=== PATIENT | female | born 1940 | race African-American/Black ===

== ENCOUNTER 2024-05-30 18:29 | Inpatient (IN) | payer MEDICARE, OTHER ==
[~2024-05-30] VITALS: Ht 165.1 cm; Wt 77.1 kg
[~2024-05-30 18:29] MED LIST: POTA-88 PO
[2024-05-30] MEDS: IV NS 0.9% 1,000 ML BAG IV ONE ×2 (18:45→19:45)
[2024-05-30] MEDS ORDERED: LORAZEPAM INJ 2 MG/ML VIAL ONE (18:49)
[2024-05-30] MEDS: LORAZEPAM INJ 2 MG/ML VIAL IV STA (18:51)
[2024-05-30] MEDS: FENTANYL PF 100MCG/2ML AMPUL IV ONE (18:52)
[2024-05-30] MEDS: ROCURONIUM BROMIDE 100 MG/10 ML VIAL IV ONE (18:52)
[2024-05-30] MEDS: ETOMIDATE 2 MG/ML VIAL IV ONE (18:52)
[2024-05-30 18:56] LABS: BASOPHILS % (AUTO) 1.6 % (0.0-2.0); EOSINOPHILS % (AUTO) 0.7 % (0.0-6.0); HEMATOCRIT 36 % (33-45); HEMOGLOBIN 11.4 g/dL (11.5-14.8); LYMPHOCYTES % (AUTO) 31.6 % (20.0-44.0); MEAN CORPUSCULAR HEMOGLOBIN 28 PG (26.0-33.0); MEAN CORPUSCULAR HGB CONC 32 g/dl (31.0-36.0); MEAN CORPUSCULAR VOLUME 86 fL (82-100); MONOCYTES % (AUTO) 10.3 % (2.0-12.0); NEUTROPHILS % (AUTO) 55.8 % (43.0-81.0); PLATELET COUNT (AUTO) 406 K/uL (150-450); RED BLOOD CELL COUNT(AUTO) 4.12 MIL/uL (4.0-5.2); WHITE BLOOD COUNT (AUTO) 7.9 K/uL (4.3-11.0)
[2024-05-30 18:57] LABS: BASOPHILS # (AUTO) 0.1 K/uL (0.0-0.2); EOSINOPHILS # (AUTO) 0.1 K/uL (0.0-0.7); LYMPHOCYTES # (AUTO) 2.5 K/uL (0.8-4.8); MONOCYTES # (AUTO) 0.8 K/uL (0.1-1.30); NEUTROPHILS # (AUTO) 4.4 K/uL (1.8-8.9)
[2024-05-30] MEDS: MIDAZOLAM HCL 2 MG/2ML VIAL IV ONE (19:00)
[2024-05-30 19:10] LABS: INR 1.02 (0.91-1.10); PARTIAL THROMBOPLASTIN TIME 23.5 SEC (24.3-34.3); PROTHROMBIN TIME 10.8 SECS (9.2-11.1); SERUM AMMONIA 19 umol/L (11-32)
[2024-05-30 19:21] LABS: LACTIC ACID 2.2 mmol/L (0.4-2.0)
[2024-05-30 19:31] LABS: APPEARANCE,URINE SLIGHTLY CLOUDY (CLEAR); BILIRUBIN,URINE 1+ (NEGATIVE); BLOOD, URINE NEGATIVE Ery/uL (NEGATIVE); COLOR,URINE YELLOW (YELLOW); KETONES,URINE NEGATIVE (NEGATIVE); LEUKOCYTE ESTERASE ,URINE NEGATIVE (NEGATIVE); NITRITE, URINE NEGATIVE (NEGATIVE); PROTEIN,URINE TRACE mg/dl (NEGATIVE); UGLUCOSE NEGATIVE (NEGATIVE)
[2024-05-30 19:44] LABS: ALANINE AMINOTRANSFERASE 82 U/L (12-78); ALBUMIN 2.3 g/dL (3.4-5.0); ALKALINE PHOSPHATASE 741 U/L (46-116); ASPARTATE AMINOTRANSFERASE 93 U/L (15-37); BILIRUBIN,DIRECT 4.9 mg/dL (0.0-0.2); BILIRUBIN,TOTAL 5.1 mg/dL (0.2-1.0); CALCIUM, SERUM 8.7 mg/dL (8.5-10.1); CARBON DIOXIDE 33 mmol/L (21-32); CHLORIDE 103 mmol/L (98-107); CREATININE 0.8 mg/dL (0.6-1.3); GLUCOSE 257 mg/dL (74-106); LIPASE 13 U/L (16-77); POTASSIUM 4.6 mmol/L (3.5-5.1); SODIUM SERUM 141 mmol/L (136-145); UREA NITROGEN, BLOOD 11 mg/dL (7-18)
[2024-05-30] MEDS ORDERED: ASCO500T10 PO (19:44)
[2024-05-30] MEDS ORDERED: CALC-1143 PO (19:44)
[2024-05-30] MEDS ORDERED: DOCU100C36 PO (19:44)
[2024-05-30] MEDS ORDERED: AMIN30LI27 PO (19:44)
[2024-05-30] MEDS ORDERED: SERT50TA12 PO (19:44)
[2024-05-30] MEDS ORDERED: ACET325T53 PO ×2 (19:44)
[2024-05-30] MEDS ORDERED: MAGN400O6 PO (19:44)
[2024-05-30] MEDS ORDERED: ONDA4TAB5 PO (19:44)
[2024-05-30] MEDS ORDERED: CARV12.52 PO (19:44)
[2024-05-30] MEDS ORDERED: BISA10SU11 RC (19:44)
[2024-05-30] MEDS ORDERED: MULT-213 PO (19:44)
[2024-05-30] MEDS ORDERED: NA P133E RC (19:44)
[2024-05-30] MEDS ORDERED: PANT40TA49 PO (19:44)
[2024-05-30] MEDS ORDERED: INSU100V42 SQ (19:44)
[2024-05-30] MEDS ORDERED: CLON0.5T4 PO (19:44)
[2024-05-30] MEDS: LEVETIRACETAM (500MG) 1,000 MG in IV NS 0.9% 90 ML IV SCH (19:55)
[2024-05-30] MEDS: FENTANYL CITRAT IV 2,500 MCG in IV NS 0.9% 200 ML IV PRN (20:00)
[2024-05-30] MEDS: MIDAZOLAM HCL 100 MG in IV NS 0.9% 80 ML IV PRN (20:10)
[2024-05-30] MEDS: CEFEPIME 1 GM in IV D5W 50 ML IV ONE (20:15)
[2024-05-30 20:18] LABS: URINE AMORPHOUS PHOSPHATES Many /HPF (None Seen)
[2024-05-30 20:19] LABS: ADD URINE CULTURE NO; BACTERIA,URINE Few /HPF (None Seen); RBC,URINE 0-2 /HPF (0-2); SQUAMOUS EPITHELIAL CELL,UR Rare /HPF (None Seen); WBC,URINE 0-2 /HPF (0-3)
[2024-05-30 20:51] LABS: ABG OXYGEN SATURATION 99.3 % (94.0-98.0); ABG PCO2 31.6 mmHg (32.0-45.0); ABG PH 7.495 (7.350-7.450); ABG PO2 274.4 mmHg (83.0-108.0); ABG TOTAL HEMOGLOBIN 10.6 G/dL (12.0-16.0); COHb 0.2 % (0.5-1.5); MetHb 0.2 % (0.0-1.5); O2Hb 98.9 % (94.0-97.0); PEEP,BG 5 cm H2O; SITE, ABG RIGHT BRACHIAL; VT, ABG 450 mL
[2024-05-30] MEDS: VANCOMYCIN 1 GM in IV D5W 250 ML IV ONE (20:55)
[2024-05-30] MEDS: IV NS 0.9% 500 ML BAG IV ONE (21:20)
[2024-05-30] MEDS ORDERED: MAG HYDROX/AL HYDROX/SIMETH 30 ML UDC PO PRN (22:00)
[2024-05-30] MEDS ORDERED: MAGNESIUM HYDROXIDE 30 ML UDC PO PRN (22:00)
[2024-05-30] MEDS ORDERED: ONDANSETRON HCL/PF 4 MG/2 ML VIAL IVP PRN (22:00)
[2024-05-30 22:30] VITALS: BP 156/90; TEMP 96.6; O2SAT 100
[2024-05-30 22:45] VITALS: BP 151/82; O2SAT 100
[2024-05-30 23:00] VITALS: BP 140/90; O2SAT 100
[2024-05-30] MEDS: IV NS 0.9% 1,000 ML IV PRN (23:01)
[2024-05-30] MEDS: ENOXAPARIN SODIUM 40 MG/0.4 ML DISP.SYRIN SQ SCH (23:05)
[2024-05-30 23:15] VITALS: BP 149/85; O2SAT 100
[2024-05-30 23:30] VITALS: BP 146/81; O2SAT 100
[2024-05-30 23:45] VITALS: BP 149/87; O2SAT 100
[2024-05-31] VITALS (62 sets, daily range): BP systolic 88–151; BP diastolic 48–91; TEMP 96.5–99.3; O2SAT 99–100
[2024-05-31] MEDS ORDERED: DEXTROSE 50%-WATER 50 ML DISP.SYRIN IV PRN (00:30)
[2024-05-31] MEDS: ENOXAPARIN SODIUM 80 MG/0.8 ML DISP.SYRIN SQ SCH ×2 (01:00→08:24)
[2024-05-31] MEDS: ENOXAPARIN SODIUM 30 MG/0.3 ML DISP.SYRIN SQ ONE (01:03)
[2024-05-31] MEDS: PROPOFOL 100 ML IV PRN (03:04)
[2024-05-31 04:32] LABS: BASOPHILS % (AUTO) 0.6 % (0.0-2.0); HEMATOCRIT 32 % (33-45); HEMOGLOBIN 10.4 g/dL (11.5-14.8); LYMPHOCYTES % (AUTO) 14.1 % (20.0-44.0); MEAN CORPUSCULAR HEMOGLOBIN 28 PG (26.0-33.0); MEAN CORPUSCULAR HGB CONC 33 g/dl (31.0-36.0); MEAN CORPUSCULAR VOLUME 85 fL (82-100); MONOCYTES # (AUTO) 0.7 K/uL (0.1-1.30); MONOCYTES % (AUTO) 10.2 % (2.0-12.0); NEUTROPHILS # (AUTO) 5.4 K/uL (1.8-8.9); NEUTROPHILS % (AUTO) 75.1 % (43.0-81.0); PLATELET COUNT (AUTO) 280 K/uL (150-450); RED BLOOD CELL COUNT(AUTO) 3.73 MIL/uL (4.0-5.2); RED CELL DISTRIBUTION WIDTH 20.4 % (11.5-15.0); WHITE BLOOD COUNT (AUTO) 7.1 K/uL (4.3-11.0)
[2024-05-31] MEDS: BLOOD SUGAR DIAGNOSTIC 1 EACH STRIP IN SCH (06:31)
[2024-05-31 07:45] LABS: ALBUMIN 2.1 g/dL (3.4-5.0); BILIRUBIN,DIRECT 4.2 mg/dL (0.0-0.2); BILIRUBIN,TOTAL 4.9 mg/dL (0.2-1.0); CALCIUM, SERUM 8.1 mg/dL (8.5-10.1); CREATININE 0.5 mg/dL (0.6-1.3); MAGNESIUM 1.6 mg/dL (1.8-2.4); PHOSPHORUS 2.6 mg/dL (2.5-4.9); TOTAL PROTEIN, SERUM 6.4 g/dL (6.4-8.2)
[2024-05-31 07:53] LABS: THYROID STIMULATING HORMONE 0.7 uIU/mL (0.358-3.74)
[2024-05-31 08:09] LABS: POTASSIUM 2.8 mmol/L (3.5-5.1)
[2024-05-31] MEDS: LEVETIRACETAM (500MG) 1,000 MG in IV NS 0.9% 90 ML IV SCH (08:12)
[2024-05-31] MEDS: POTASSIUM CL. PREMIX PERIPHER. 50 ML IV SCH (08:22)
[2024-05-31] MEDS: PANTOPRAZOLE 40 MG VIAL IV SCH (08:22)
[2024-05-31] MEDS: Z GUARD REMEDY 4 OZ OINT TP PRN (08:23)
[2024-05-31] MEDS: CEFEPIME 2 GM in IV D5W 100 ML IV SCH (08:24)
[2024-05-31 08:40] LABS: ABG BASE EXCESS 4.2 mmol/L (-2.0-3.0); ABG OXYGEN SATURATION 98.4 % (94.0-98.0); ABG PCO2 32.7 mmHg (32.0-45.0); ABG PO2 115.6 mmHg (83.0-108.0); ABG TOTAL HEMOGLOBIN 10.9 G/dL (12.0-16.0); COHb 0.3 % (0.5-1.5); MetHb 0.1 % (0.0-1.5); PEEP,BG 5 cm H2O; SITE, ABG RIGHT RADIAL; VT, ABG 450 mL
[2024-05-31] MEDS ORDERED: ETOMIDATE 2 MG/ML VIAL IV ONE (09:03)
[2024-05-31] MEDS: Magnesium 1GM/D5W 100ML PREMIX 100 ML IV SCH (10:31)
[2024-05-31] MEDS: VANCOMYCIN 1 GM in IV D5W 250ml IV SCH (17:51)
[2024-06-01] VITALS (63 sets, daily range): BP systolic 94–131; BP diastolic 48–105; TEMP 97.8–99.2; O2SAT 99–100
[2024-06-01 05:18] LABS: ALBUMIN 1.7 g/dL (3.4-5.0); BILIRUBIN,TOTAL 3.6 mg/dL (0.2-1.0); CALCIUM, SERUM 8.1 mg/dL (8.5-10.1); CREATININE 0.5 mg/dL (0.6-1.3); POTASSIUM 3.2 mmol/L (3.5-5.1); TOTAL PROTEIN, SERUM 5.5 g/dL (6.4-8.2)
[2024-06-01] MEDS: POTASSIUM CL. PREMIX PERIPHER. 50 ML IV SCH (09:49)
[2024-06-01] MEDS ORDERED: IOHEXOL 50 ML IV ONE (14:12)
[2024-06-01] MEDS ORDERED: INDOMETHACIN 100 MG SUPP.RECT ONE (14:12)
[2024-06-01] MEDS ORDERED: PROPOFOL 100 ML ONE (15:20)
[2024-06-02] VITALS (49 sets, daily range): BP systolic 105–174; BP diastolic 58–125; TEMP 97.9–99.1; O2SAT 98–100
[2024-06-02 04:16] LABS: BASOPHILS % (AUTO) 0.3 % (0.0-2.0); EOSINOPHILS % (AUTO) 0.5 % (0.0-6.0); HEMATOCRIT 27 % (33-45); LYMPHOCYTES # (AUTO) 0.7 K/uL (0.8-4.8); LYMPHOCYTES % (AUTO) 11.8 % (20.0-44.0); MEAN CORPUSCULAR HEMOGLOBIN 28 PG (26.0-33.0); MEAN CORPUSCULAR HGB CONC 33 g/dl (31.0-36.0); MEAN CORPUSCULAR VOLUME 86 fL (82-100); MONOCYTES # (AUTO) 0.5 K/uL (0.1-1.30); MONOCYTES % (AUTO) 8.7 % (2.0-12.0); NEUTROPHILS # (AUTO) 4.8 K/uL (1.8-8.9); NEUTROPHILS % (AUTO) 78.7 % (43.0-81.0); PLATELET COUNT (AUTO) 245 K/uL (150-450); RED BLOOD CELL COUNT(AUTO) 3.18 MIL/uL (4.0-5.2); RED CELL DISTRIBUTION WIDTH 20.6 % (11.5-15.0)
[2024-06-02 04:36] LABS: ALANINE AMINOTRANSFERASE 43 U/L (12-78); ALBUMIN 1.6 g/dL (3.4-5.0); ALKALINE PHOSPHATASE 412 U/L (46-116); ASPARTATE AMINOTRANSFERASE 44 U/L (15-37); BILIRUBIN,TOTAL 3.2 mg/dL (0.2-1.0); CALCIUM, SERUM 8.1 mg/dL (8.5-10.1); CARBON DIOXIDE 27 mmol/L (21-32); CHLORIDE 112 mmol/L (98-107); CREATININE 0.5 mg/dL (0.6-1.3); GLUCOSE 100 mg/dL (74-106); PHOSPHORUS 2.3 mg/dL (2.5-4.9); POTASSIUM 3.1 mmol/L (3.5-5.1); SODIUM SERUM 145 mmol/L (136-145); TOTAL PROTEIN, SERUM 5.3 g/dL (6.4-8.2); UREA NITROGEN, BLOOD 6 mg/dL (7-18)
[2024-06-02] MEDS: PRECEDEX 400 MCG/100 ML BOTTLE 100 ML IV PRN (09:30)
[2024-06-02] MEDS: POTASSIUM CL. PREMIX PERIPHER. 50 ML IV SCH (09:42)
[2024-06-02] MEDS: LEVETIRACETAM (500MG) 2,000 MG in IV NS 0.9% 80 ML IV ONE ×2 (11:50→11:52)
[2024-06-02] MEDS: Sodium Phosphate 15 MMOL in IV NS 0.9% 245 ML IV ONE (16:21)
[2024-06-02] MEDS: LACOSAMIDE 200 MG in IV NS 0.9% 100 ML IV ONE (16:51)
[2024-06-02] MEDS: VANCOMYCIN 1 GM in IV D5W 250ml IV SCH (20:02)
[2024-06-02] MEDS ORDERED: LEVETIRACETAM (500MG) 1,000 MG in IV NS 0.9% 90 ML IV SCH (21:00)
[2024-06-02] MEDS: LEVETIRACETAM (500MG) 1,500 MG in IV NS 0.9% 85 ML IV SCH (21:53)
[2024-06-03] VITALS (37 sets, daily range): BP systolic 109–160; BP diastolic 61–148; TEMP 97.7–98.5; O2SAT 98–100
[2024-06-03 04:40] LABS: BASOPHILS % (AUTO) 0.8 % (0.0-2.0); EOSINOPHILS # (AUTO) 0.1 K/uL (0.0-0.7); HEMATOCRIT 30 % (33-45); HEMOGLOBIN 9.9 g/dL (11.5-14.8); LYMPHOCYTES # (AUTO) 0.6 K/uL (0.8-4.8); LYMPHOCYTES % (AUTO) 10.6 % (20.0-44.0); MEAN CORPUSCULAR HEMOGLOBIN 28 PG (26.0-33.0); MEAN CORPUSCULAR HGB CONC 33 g/dl (31.0-36.0); MEAN CORPUSCULAR VOLUME 86 fL (82-100); MONOCYTES # (AUTO) 0.5 K/uL (0.1-1.30); MONOCYTES % (AUTO) 9.2 % (2.0-12.0); NEUTROPHILS # (AUTO) 4.5 K/uL (1.8-8.9); NEUTROPHILS % (AUTO) 78.4 % (43.0-81.0); PLATELET COUNT (AUTO) 248 K/uL (150-450); RED BLOOD CELL COUNT(AUTO) 3.51 MIL/uL (4.0-5.2); RED CELL DISTRIBUTION WIDTH 19.9 % (11.5-15.0); WHITE BLOOD COUNT (AUTO) 5.8 K/uL (4.3-11.0)
[2024-06-03 04:56] LABS: ALBUMIN 1.5 g/dL (3.4-5.0); BILIRUBIN,TOTAL 3.3 mg/dL (0.2-1.0); CALCIUM, SERUM 7.8 mg/dL (8.5-10.1); CREATININE 0.4 mg/dL (0.6-1.3); MAGNESIUM 1.7 mg/dL (1.8-2.4); PHOSPHORUS 2.8 mg/dL (2.5-4.9); TOTAL PROTEIN, SERUM 5.5 g/dL (6.4-8.2)
[2024-06-03 05:45] LABS: POTASSIUM 2.8 mmol/L (3.5-5.1)
[2024-06-03] MEDS: LACOSAMIDE 100 MG in IV NS 0.9% 50 ML IV SCH (08:06)
[2024-06-03] MEDS: POTASSIUM CL. PREMIX PERIPHER. 50 ML IV SCH (09:16)
[2024-06-03] MEDS: Magnesium 1GM/D5W 100ML PREMIX 100 ML IV SCH (09:52)
[2024-06-03 10:03] LABS: CALCIUM, SERUM 7.9 mg/dL (8.5-10.1); MAGNESIUM 1.8 mg/dL (1.8-2.4)
[2024-06-03] MEDS ORDERED: LACOSAMIDE 200 MG in IV NS 0.9% 50 ML IV SCH (20:00)
[2024-06-03] MEDS: VIMPAT 200 MG in IV NS 0.9% 100 ML IV SCH (20:01)
[2024-06-03] MEDS: IV NS 0.9% 250 ML IV PRN (21:07)
[2024-06-04] VITALS (32 sets, daily range): BP systolic 98–156; BP diastolic 58–85; TEMP 98.1–99; O2SAT 54–100
[2024-06-04 07:21] LABS: BASOPHILS % (AUTO) 0.6 % (0.0-2.0); EOSINOPHILS # (AUTO) 0.1 K/uL (0.0-0.7); EOSINOPHILS % (AUTO) 1.2 % (0.0-6.0); HEMATOCRIT 30 % (33-45); HEMOGLOBIN 10.1 g/dL (11.5-14.8); LYMPHOCYTES # (AUTO) 0.8 K/uL (0.8-4.8); LYMPHOCYTES % (AUTO) 14.8 % (20.0-44.0); MEAN CORPUSCULAR HEMOGLOBIN 28 PG (26.0-33.0); MEAN CORPUSCULAR HGB CONC 33 g/dl (31.0-36.0); MEAN CORPUSCULAR VOLUME 85 fL (82-100); MONOCYTES # (AUTO) 0.5 K/uL (0.1-1.30); MONOCYTES % (AUTO) 10.5 % (2.0-12.0); NEUTROPHILS # (AUTO) 3.7 K/uL (1.8-8.9); NEUTROPHILS % (AUTO) 72.9 % (43.0-81.0); PLATELET COUNT (AUTO) 276 K/uL (150-450); RED BLOOD CELL COUNT(AUTO) 3.58 MIL/uL (4.0-5.2); RED CELL DISTRIBUTION WIDTH 19.6 % (11.5-15.0); WHITE BLOOD COUNT (AUTO) 5.1 K/uL (4.3-11.0)
[2024-06-04 08:14] LABS: BILIRUBIN,TOTAL 2.8 mg/dL (0.2-1.0); CALCIUM, SERUM 7.7 mg/dL (8.5-10.1); CREATININE 0.5 mg/dL (0.6-1.3); MAGNESIUM 1.8 mg/dL (1.8-2.4); PHOSPHORUS 2.2 mg/dL (2.5-4.9); TOTAL PROTEIN, SERUM 5.4 g/dL (6.4-8.2)
[2024-06-04 08:43] LABS: ALBUMIN 1.4 g/dL (3.4-5.0); POTASSIUM 2.6 mmol/L (3.5-5.1)
[2024-06-04] MEDS: POTASSIUM CL. PREMIX PERIPHER. 50 ML IV SCH (08:58)
[2024-06-04] MEDS: VALPROATE 1,000 MG in IV D5W 100 ML IV ONE (10:21)
[2024-06-04] MEDS: JEVITY 1.2 CAL 1,000 ML BOTTLE GT SCH (11:54)
[2024-06-04] MEDS: Sodium Phosphate 15 MMOL in IV NS 0.9% 245 ML IV ONE (16:37)
[2024-06-04] MEDS: VALPROATE 500 MG in IV D5W 100 ML IV SCH (21:07)
[2024-06-04] MEDS: INSULIN REGULAR, HUMAN 100 UNIT/ML 3 ML VIAL SQ PRN (23:54)
[2024-06-05] VITALS (35 sets, daily range): BP systolic 104–141; BP diastolic 40–102; TEMP 98–99; O2SAT 91–100
[2024-06-05 04:47] LABS: BILIRUBIN,TOTAL 2.3 mg/dL (0.2-1.0); CALCIUM, SERUM 7.7 mg/dL (8.5-10.1); CREATININE 0.5 mg/dL (0.6-1.3); PHOSPHORUS 2.3 mg/dL (2.5-4.9); TOTAL PROTEIN, SERUM 5.2 g/dL (6.4-8.2)
[2024-06-05 05:30] LABS: POTASSIUM 2.5 mmol/L (3.5-5.1)
[2024-06-05 05:32] LABS: ALBUMIN 1.3 g/dL (3.4-5.0)
[2024-06-05] MEDS ORDERED: POTASSIUM CHLORIDE 10 MEQ/50 ML PREMIXED IVPB FOR PERIPHERAL LINE IV SCH (09:30)
[2024-06-05] MEDS: PROSOURCE / PROSTAT (PYXIS) 30 ML UDC GT SCH (09:58)
[2024-06-05] MEDS ORDERED: POTASSIUM CL. PREMIX PERIPHER. 50 ML IV SCH (10:00)
[2024-06-05] MEDS: POTASSIUM CL. PREMIX PERIPHER. 50 ML IV SCH (10:57)
[2024-06-05] MEDS: LORAZEPAM INJ 2 MG/ML VIAL IV ONE (11:39)
[2024-06-05] MEDS ORDERED: ESTR0.5T PO (15:53)
[2024-06-05] MEDS ORDERED: ROSU10TA29 PO (15:53)
[2024-06-05] MEDS ORDERED: CHOL200059 PO (15:53)
[2024-06-05] MEDS ORDERED: FURO20TA4 PO (15:53)
[2024-06-05] MEDS ORDERED: NAPR-1192 PO (15:53)
[2024-06-05] MEDS ORDERED: METF-440 PO (15:53)
[2024-06-05] MEDS: Sodium Phosphate 15 MMOL in IV NS 0.9% 245 ML IV SCH (16:15)
[2024-06-05] MEDS: LORAZEPAM INJ 2 MG/ML VIAL IV SCH (17:48)
[2024-06-06] VITALS (38 sets, daily range): BP systolic 98–175; BP diastolic 30–133; TEMP 98–98.6; O2SAT 96–100
[2024-06-06 03:45] LABS: BASOPHILS # (AUTO) 0.1 K/uL (0.0-0.2); BASOPHILS % (AUTO) 1.1 % (0.0-2.0); EOSINOPHILS # (AUTO) 0.1 K/uL (0.0-0.7); EOSINOPHILS % (AUTO) 0.9 % (0.0-6.0); HEMATOCRIT 31 % (33-45); HEMOGLOBIN 10.2 g/dL (11.5-14.8); LYMPHOCYTES # (AUTO) 1.1 K/uL (0.8-4.8); LYMPHOCYTES % (AUTO) 18.7 % (20.0-44.0); MEAN CORPUSCULAR HEMOGLOBIN 28 PG (26.0-33.0); MEAN CORPUSCULAR HGB CONC 33 g/dl (31.0-36.0); MEAN CORPUSCULAR VOLUME 85 fL (82-100); MONOCYTES # (AUTO) 0.6 K/uL (0.1-1.30); MONOCYTES % (AUTO) 10.5 % (2.0-12.0); NEUTROPHILS # (AUTO) 3.9 K/uL (1.8-8.9); NEUTROPHILS % (AUTO) 68.8 % (43.0-81.0); PLATELET COUNT (AUTO) 311 K/uL (150-450); RED BLOOD CELL COUNT(AUTO) 3.67 MIL/uL (4.0-5.2); RED CELL DISTRIBUTION WIDTH 19.3 % (11.5-15.0); WHITE BLOOD COUNT (AUTO) 5.7 K/uL (4.3-11.0)
[2024-06-06] MEDS: LORAZEPAM INJ 2 MG/ML VIAL IV PRN (03:46)
[2024-06-06 03:58] LABS: BILIRUBIN,TOTAL 2.4 mg/dL (0.2-1.0); CREATININE 0.5 mg/dL (0.6-1.3); MAGNESIUM 1.7 mg/dL (1.8-2.4); PHOSPHORUS 1.9 mg/dL (2.5-4.9); TOTAL PROTEIN, SERUM 5.3 g/dL (6.4-8.2)
[2024-06-06 04:11] LABS: ALBUMIN 1.4 g/dL (3.4-5.0); POTASSIUM 2.7 mmol/L (3.5-5.1)
[2024-06-06] MEDS: POTASSIUM CHLORIDE 20 MEQ POWDER PACKET GT ONE (06:51)
[2024-06-06] MEDS: POTASSIUM CL. PREMIX PERIPHER. 50 ML IV SCH (06:54)
[2024-06-06] MEDS ORDERED: Magnesium 1GM/D5W 100ML PREMIX 100 ML IV SCH (10:00)
[2024-06-06] MEDS: MAGNESIUM OXIDE 400 MG TABLET GT ONE (11:45)
[2024-06-06] MEDS: LORAZEPAM INJ 2 MG/ML VIAL IV SCH ×2 (12:24→21:27)
[2024-06-06] MEDS: VALPROATE 500 MG in IV D5W 100 ML IV SCH (15:56)
[2024-06-06] MEDS: NEUTRA PHOS 1 POWD.PACKET GT ONE (15:58)
[2024-06-07] VITALS (38 sets, daily range): BP systolic 103–147; BP diastolic 60–109; TEMP 98–98.7; O2SAT 100
[2024-06-07 04:35] LABS: BASOPHILS % (AUTO) 0.5 % (0.0-2.0); EOSINOPHILS % (AUTO) 0.7 % (0.0-6.0); HEMATOCRIT 28 % (33-45); HEMOGLOBIN 9.4 g/dL (11.5-14.8); LYMPHOCYTES # (AUTO) 1.3 K/uL (0.8-4.8); MEAN CORPUSCULAR HEMOGLOBIN 28 PG (26.0-33.0); MEAN CORPUSCULAR HGB CONC 33 g/dl (31.0-36.0); MEAN CORPUSCULAR VOLUME 86 fL (82-100); MONOCYTES # (AUTO) 0.8 K/uL (0.1-1.30); MONOCYTES % (AUTO) 10.5 % (2.0-12.0); NEUTROPHILS # (AUTO) 5.3 K/uL (1.8-8.9); NEUTROPHILS % (AUTO) 71.3 % (43.0-81.0); PLATELET COUNT (AUTO) 285 K/uL (150-450); RED BLOOD CELL COUNT(AUTO) 3.32 MIL/uL (4.0-5.2); RED CELL DISTRIBUTION WIDTH 18.6 % (11.5-15.0); WHITE BLOOD COUNT (AUTO) 7.5 K/uL (4.3-11.0)
[2024-06-07 04:54] LABS: BILIRUBIN,TOTAL 2.1 mg/dL (0.2-1.0); CALCIUM, SERUM 8.3 mg/dL (8.5-10.1); CREATININE 0.5 mg/dL (0.6-1.3); MAGNESIUM 1.8 mg/dL (1.8-2.4); PHOSPHORUS 2.2 mg/dL (2.5-4.9); TOTAL PROTEIN, SERUM 5.1 g/dL (6.4-8.2)
[2024-06-07 05:29] LABS: ALBUMIN 1.3 g/dL (3.4-5.0); POTASSIUM 2.7 mmol/L (3.5-5.1)
[2024-06-07] MEDS: POTASSIUM CL. PREMIX PERIPHER. 50 ML IV SCH (06:22)
[2024-06-07] MEDS: POTASSIUM CHLORIDE 20 MEQ POWDER PACKET GT ONE (06:22)
[2024-06-07] MEDS: THERAHONEY GEL 1.5 OZ TUBE TP SCH (09:34)
[2024-06-07 13:18] LABS: URINE TOTAL PROTEIN 44.1 mg/dL (0-11.9)
[2024-06-07 13:54] LABS: CALCIUM, SERUM 8.2 mg/dL (8.5-10.1); CREATININE 0.4 mg/dL (0.6-1.3); POTASSIUM 3.2 mmol/L (3.5-5.1)
[2024-06-07] MEDS: NEUTRA PHOS 1 POWD.PACKET GT ONE (15:50)
[2024-06-07] MEDS: POTASSIUM CHLORIDE 20 MEQ POWDER PACKET GT SCH (16:45)
[2024-06-08] VITALS (24 sets, daily range): BP systolic 55–148; BP diastolic 42–89; TEMP 98–100.1; O2SAT 99–100
[2024-06-08 04:36] LABS: CALCIUM, SERUM 8.1 mg/dL (8.5-10.1); CREATININE 0.4 mg/dL (0.6-1.3); PHOSPHORUS 2.3 mg/dL (2.5-4.9); POTASSIUM 3.1 mmol/L (3.5-5.1)
[2024-06-08 04:43] LABS: ALBUMIN 1.4 g/dL (3.4-5.0)
[2024-06-08] MEDS: ACETAMINOPHEN 325 MG TABLET PO PRN (08:37)
[2024-06-08] MEDS: POTASSIUM CHLORIDE 20 MEQ POWDER PACKET GT ONE (09:46)
[2024-06-08] MEDS: NEUTRA PHOS 1 POWD.PACKET GT ONE (16:52)
[2024-06-08] MEDS ORDERED: LORAZEPAM INJ 2 MG/ML VIAL IV PRN (21:00)
[2024-06-09] VITALS (25 sets, daily range): BP systolic 96–149; BP diastolic 40–110; TEMP 98–100; O2SAT 98–100
[2024-06-09 05:00] LABS: ALANINE AMINOTRANSFERASE 32 U/L (12-78); ALKALINE PHOSPHATASE 310 U/L (46-116); ASPARTATE AMINOTRANSFERASE 43 U/L (15-37); BILIRUBIN,TOTAL 1.7 mg/dL (0.2-1.0); CALCIUM, SERUM 7.9 mg/dL (8.5-10.1); CARBON DIOXIDE 33 mmol/L (21-32); CHLORIDE 107 mmol/L (98-107); CREATININE 0.5 mg/dL (0.6-1.3); GLUCOSE 149 mg/dL (74-106); PHOSPHORUS 2.2 mg/dL (2.5-4.9); POTASSIUM 3.5 mmol/L (3.5-5.1); SODIUM SERUM 141 mmol/L (136-145); UREA NITROGEN, BLOOD 9 mg/dL (7-18)
[2024-06-09 05:04] LABS: ALBUMIN 1.4 g/dL (3.4-5.0)
[2024-06-09] MEDS: NEUTRA PHOS 1 POWD.PACKET GT ONE (16:07)
[2024-06-10] VITALS (27 sets, daily range): BP systolic 94–157; BP diastolic 50–140; TEMP 98.2–100.6; O2SAT 97–100
[2024-06-10 04:53] LABS: CALCIUM, SERUM 8.2 mg/dL (8.5-10.1); CREATININE 0.4 mg/dL (0.6-1.3); PHOSPHORUS 3.3 mg/dL (2.5-4.9)
[2024-06-10] MEDS: PANTOPRAZOLE 40 MG/PACK PACK GT SCH (09:04)
[2024-06-10] MEDS: POTASSIUM CHLORIDE 20 MEQ POWDER PACKET NG SCH (10:15)
[2024-06-11] VITALS (32 sets, daily range): BP systolic 81–145; BP diastolic 53–100; TEMP 99–100.6; O2SAT 92–100
[2024-06-11 03:45] LABS: BASOPHILS % (AUTO) 0.7 % (0.0-2.0); EOSINOPHILS % (AUTO) 0.8 % (0.0-6.0); HEMATOCRIT 29 % (33-45); HEMOGLOBIN 9.3 g/dL (11.5-14.8); LYMPHOCYTES # (AUTO) 0.9 K/uL (0.8-4.8); LYMPHOCYTES % (AUTO) 18.8 % (20.0-44.0); MEAN CORPUSCULAR HEMOGLOBIN 28 PG (26.0-33.0); MEAN CORPUSCULAR HGB CONC 32 g/dl (31.0-36.0); MEAN CORPUSCULAR VOLUME 86 fL (82-100); MONOCYTES # (AUTO) 0.6 K/uL (0.1-1.30); MONOCYTES % (AUTO) 12.7 % (2.0-12.0); NEUTROPHILS # (AUTO) 3.3 K/uL (1.8-8.9); PLATELET COUNT (AUTO) 278 K/uL (150-450); RED BLOOD CELL COUNT(AUTO) 3.34 MIL/uL (4.0-5.2); RED CELL DISTRIBUTION WIDTH 17.6 % (11.5-15.0); WHITE BLOOD COUNT (AUTO) 4.9 K/uL (4.3-11.0)
[2024-06-11 04:02] LABS: BILIRUBIN,TOTAL 1.7 mg/dL (0.2-1.0); CALCIUM, SERUM 8.2 mg/dL (8.5-10.1); CREATININE 0.6 mg/dL (0.6-1.3); MAGNESIUM 1.9 mg/dL (1.8-2.4); PHOSPHORUS 3.7 mg/dL (2.5-4.9); POTASSIUM 3.4 mmol/L (3.5-5.1)
[2024-06-11 04:34] LABS: ALBUMIN 1.4 g/dL (3.4-5.0)
[2024-06-11] MEDS: LORAZEPAM INJ 2 MG/ML VIAL IV PRN (09:12)
[2024-06-11] MEDS: POTASSIUM CHLORIDE 20 MEQ POWDER PACKET NG SCH (09:31)
[2024-06-12] VITALS (36 sets, daily range): BP systolic 102–151; BP diastolic 33–109; TEMP 99.2–100.7; O2SAT 100
[2024-06-12 04:01] LABS: BASOPHILS % (AUTO) 0.4 % (0.0-2.0); EOSINOPHILS # (AUTO) 0.1 K/uL (0.0-0.7); EOSINOPHILS % (AUTO) 0.9 % (0.0-6.0); HEMATOCRIT 28 % (33-45); HEMOGLOBIN 9.4 g/dL (11.5-14.8); LYMPHOCYTES # (AUTO) 1.7 K/uL (0.8-4.8); LYMPHOCYTES % (AUTO) 25.9 % (20.0-44.0); MEAN CORPUSCULAR HEMOGLOBIN 29 PG (26.0-33.0); MEAN CORPUSCULAR HGB CONC 34 g/dl (31.0-36.0); MEAN CORPUSCULAR VOLUME 86 fL (82-100); MONOCYTES # (AUTO) 0.7 K/uL (0.1-1.30); MONOCYTES % (AUTO) 11.3 % (2.0-12.0); NEUTROPHILS % (AUTO) 61.5 % (43.0-81.0); PLATELET COUNT (AUTO) 305 K/uL (150-450); RED BLOOD CELL COUNT(AUTO) 3.25 MIL/uL (4.0-5.2); RED CELL DISTRIBUTION WIDTH 17.8 % (11.5-15.0); WHITE BLOOD COUNT (AUTO) 6.5 K/uL (4.3-11.0)
[2024-06-12 04:39] LABS: ALBUMIN 1.6 g/dL (3.4-5.0); BILIRUBIN,TOTAL 1.7 mg/dL (0.2-1.0); CALCIUM, SERUM 8.5 mg/dL (8.5-10.1); CREATININE 0.5 mg/dL (0.6-1.3); POTASSIUM 3.7 mmol/L (3.5-5.1); TOTAL PROTEIN, SERUM 5.4 g/dL (6.4-8.2)
[2024-06-12] MEDS: FREE WATER VIA TUBE FEEDING GT SCH (09:06)
[2024-06-12 09:11] LABS: ABG BASE EXCESS 5.8 mmol/L (-2.0-3.0); ABG PCO2 34.2 mmHg (32.0-45.0); ABG PH 7.538 (7.350-7.450); ABG PO2 109.3 mmHg (83.0-108.0); ABG TOTAL HEMOGLOBIN 10.9 G/dL (12.0-16.0); COHb 0.3 % (0.5-1.5); MetHb 0.1 % (0.0-1.5); O2Hb 97.6 % (94.0-97.0)
[2024-06-12] MEDS ORDERED: HYDR25TA4 PO (10:33)
[2024-06-12] MEDS: CARVEDILOL 12.5 MG TABLET PO SCH (16:18)
[2024-06-13] VITALS (27 sets, daily range): BP systolic 96–149; BP diastolic 58–104; TEMP 99.4–100.1; O2SAT 95–100
[2024-06-13] MEDS: ZOLPIDEM TARTRATE 5 MG TABLET PO PRN (01:42)
[2024-06-13 04:43] LABS: CALCIUM, SERUM 7.8 mg/dL (8.5-10.1); CREATININE 0.4 mg/dL (0.6-1.3); POTASSIUM 3.4 mmol/L (3.5-5.1)
[2024-06-13] MEDS: POTASSIUM CHLORIDE 20 MEQ POWDER PACKET NG SCH (12:50)
[2024-06-14] VITALS (33 sets, daily range): BP systolic 70–158; BP diastolic 40–85; TEMP 97.9–103; O2SAT 97–100
[2024-06-14 04:39] LABS: CALCIUM, SERUM 8.7 mg/dL (8.5-10.1); CREATININE 0.5 mg/dL (0.6-1.3); MAGNESIUM 1.8 mg/dL (1.8-2.4); PHOSPHORUS 2.9 mg/dL (2.5-4.9); POTASSIUM 3.5 mmol/L (3.5-5.1)
[2024-06-14 04:43] LABS: BASOPHILS % (AUTO) 0.2 % (0.0-2.0); EOSINOPHILS % (AUTO) 0.1 % (0.0-6.0); HEMATOCRIT 30 % (33-45); HEMOGLOBIN 9.9 g/dL (11.5-14.8); LYMPHOCYTES # (AUTO) 0.3 K/uL (0.8-4.8); LYMPHOCYTES % (AUTO) 2.5 % (20.0-44.0); MEAN CORPUSCULAR HEMOGLOBIN 29 PG (26.0-33.0); MEAN CORPUSCULAR HGB CONC 33 g/dl (31.0-36.0); MEAN CORPUSCULAR VOLUME 87 fL (82-100); MONOCYTES # (AUTO) 0.2 K/uL (0.1-1.30); NEUTROPHILS # (AUTO) 11.9 K/uL (1.8-8.9); NEUTROPHILS % (AUTO) 95.2 % (43.0-81.0); PLATELET COUNT (AUTO) 325 K/uL (150-450); RED BLOOD CELL COUNT(AUTO) 3.47 MIL/uL (4.0-5.2); RED CELL DISTRIBUTION WIDTH 17.3 % (11.5-15.0); WHITE BLOOD COUNT (AUTO) 12.5 K/uL (4.3-11.0)
[2024-06-14 05:09] LABS: BAND % (MANUAL) 8 % (0.0-5.0); LYMPHOCYTES % (MANUAL) 3 % (16-48); MONOCYTES % (MANUAL) 2 % (0-11.0); NEUTROPHILS % (MANUAL) 87 (42-76); PLATELET ESTIMATE ADEQUATE
[2024-06-14 05:10] LABS: ANISOCYTOSIS 1+
[2024-06-14] MEDS ORDERED: DC PROPOFOL WHEN EXTUBATED XX PRN (08:00)
[2024-06-14] MEDS: PIPERACILLIN /TAZOBACTAM 3.375 G in IV D5W 50 ML IV SCH (09:50)
[2024-06-14] MEDS: PIPERACILLIN /TAZOBACTAM 3.375 G in IV D5W 100 ML IV SCH (14:40)
[2024-06-15] VITALS (28 sets, daily range): BP systolic 101–155; BP diastolic 45–89; TEMP 97.9–100.7; O2SAT 95–100
[2024-06-15 04:47] LABS: BASOPHILS # (AUTO) 0.1 K/uL (0.0-0.2); BASOPHILS % (AUTO) 0.5 % (0.0-2.0); EOSINOPHILS % (AUTO) 0.2 % (0.0-6.0); HEMATOCRIT 24 % (33-45); HEMOGLOBIN 8.1 g/dL (11.5-14.8); LYMPHOCYTES # (AUTO) 1.2 K/uL (0.8-4.8); LYMPHOCYTES % (AUTO) 12.5 % (20.0-44.0); MEAN CORPUSCULAR HEMOGLOBIN 29 PG (26.0-33.0); MEAN CORPUSCULAR HGB CONC 34 g/dl (31.0-36.0); MEAN CORPUSCULAR VOLUME 87 fL (82-100); MONOCYTES # (AUTO) 1.1 K/uL (0.1-1.30); MONOCYTES % (AUTO) 11.8 % (2.0-12.0); NEUTROPHILS # (AUTO) 7.1 K/uL (1.8-8.9); PLATELET COUNT (AUTO) 280 K/uL (150-450); RED BLOOD CELL COUNT(AUTO) 2.77 MIL/uL (4.0-5.2); RED CELL DISTRIBUTION WIDTH 17.3 % (11.5-15.0); WHITE BLOOD COUNT (AUTO) 9.5 K/uL (4.3-11.0)
[2024-06-15 05:04] LABS: CALCIUM, SERUM 8.6 mg/dL (8.5-10.1); CREATININE 0.6 mg/dL (0.6-1.3); MAGNESIUM 2.1 mg/dL (1.8-2.4); PHOSPHORUS 3.6 mg/dL (2.5-4.9); POTASSIUM 3.6 mmol/L (3.5-5.1)
[2024-06-15 05:29] LABS: LYMPHOCYTES % (MANUAL) 12 % (16-48); MONOCYTES % (MANUAL) 11 % (0-11.0); MYELOCYTES % 2 % (0-0); NEUTROPHILS % (MANUAL) 75 (42-76); PLATELET ESTIMATE ADEQUATE
[2024-06-15 05:30] LABS: ANISOCYTOSIS 1+
[2024-06-16] VITALS (27 sets, daily range): BP systolic 142–171; BP diastolic 60–140; TEMP 98.4–98.9; O2SAT 94–100
[2024-06-16] MEDS ORDERED: hydrALAZINE HCL IV 20 MG VIAL IV PRN (00:30)
[2024-06-16] MEDS: hydrALAZINE HCL IV 20 MG VIAL IV PRN (05:20)
[2024-06-16 05:35] LABS: CALCIUM, SERUM 8.1 mg/dL (8.5-10.1); CARBON DIOXIDE 33 mmol/L (21-32); CHLORIDE 104 mmol/L (98-107); CREATININE 0.4 mg/dL (0.6-1.3); GLUCOSE 127 mg/dL (74-106); PHOSPHORUS 3.8 mg/dL (2.5-4.9); POTASSIUM 3.5 mmol/L (3.5-5.1); SODIUM SERUM 144 mmol/L (136-145); UREA NITROGEN, BLOOD 19 mg/dL (7-18)
[2024-06-16 05:41] LABS: BASOPHILS % (AUTO) 0.4 % (0.0-2.0); EOSINOPHILS # (AUTO) 0.1 K/uL (0.0-0.7); EOSINOPHILS % (AUTO) 0.9 % (0.0-6.0); HEMATOCRIT 26 % (33-45); HEMOGLOBIN 8.5 g/dL (11.5-14.8); LYMPHOCYTES # (AUTO) 1.1 K/uL (0.8-4.8); LYMPHOCYTES % (AUTO) 14.7 % (20.0-44.0); MEAN CORPUSCULAR HEMOGLOBIN 30 PG (26.0-33.0); MEAN CORPUSCULAR HGB CONC 33 g/dl (31.0-36.0); MEAN CORPUSCULAR VOLUME 89 fL (82-100); MONOCYTES # (AUTO) 1.1 K/uL (0.1-1.30); NEUTROPHILS # (AUTO) 5.2 K/uL (1.8-8.9); PLATELET COUNT (AUTO) 313 K/uL (150-450); RED BLOOD CELL COUNT(AUTO) 2.86 MIL/uL (4.0-5.2); RED CELL DISTRIBUTION WIDTH 17.1 % (11.5-15.0); WHITE BLOOD COUNT (AUTO) 7.6 K/uL (4.3-11.0)
[2024-06-16 07:43] LABS: EOSINOPHILS % (MANUAL) 1 % (0-4); LYMPHOCYTES % (MANUAL) 9 % (16-48); MONOCYTES % (MANUAL) 3 % (0-11.0); NEUTROPHILS % (MANUAL) 87 (42-76); PLATELET ESTIMATE ADEQUATE
[2024-06-16 07:44] LABS: ANISOCYTOSIS 1+
[2024-06-17] VITALS (25 sets, daily range): BP systolic 113–166; BP diastolic 49–118; TEMP 98.5–101.1; O2SAT 95–98
[2024-06-17 04:42] LABS: BASOPHILS # (AUTO) 0.1 K/uL (0.0-0.2); BASOPHILS % (AUTO) 0.7 % (0.0-2.0); EOSINOPHILS % (AUTO) 0.1 % (0.0-6.0); HEMATOCRIT 29 % (33-45); HEMOGLOBIN 9.5 g/dL (11.5-14.8); LYMPHOCYTES # (AUTO) 0.9 K/uL (0.8-4.8); MEAN CORPUSCULAR HEMOGLOBIN 29 PG (26.0-33.0); MEAN CORPUSCULAR HGB CONC 33 g/dl (31.0-36.0); MEAN CORPUSCULAR VOLUME 86 fL (82-100); MONOCYTES # (AUTO) 1.1 K/uL (0.1-1.30); MONOCYTES % (AUTO) 10.1 % (2.0-12.0); NEUTROPHILS # (AUTO) 8.9 K/uL (1.8-8.9); NEUTROPHILS % (AUTO) 81.1 % (43.0-81.0); PLATELET COUNT (AUTO) 389 K/uL (150-450); RED CELL DISTRIBUTION WIDTH 16.7 % (11.5-15.0); WHITE BLOOD COUNT (AUTO) 10.9 K/uL (4.3-11.0)
[2024-06-17 05:00] LABS: CALCIUM, SERUM 8.3 mg/dL (8.5-10.1); CREATININE 0.5 mg/dL (0.6-1.3); MAGNESIUM 1.7 mg/dL (1.8-2.4); PHOSPHORUS 2.7 mg/dL (2.5-4.9); POTASSIUM 3.1 mmol/L (3.5-5.1)
[2024-06-17] MEDS: PROSOURCE / PROSTAT (PYXIS) 30 ML UDC GT SCH (08:27)
[2024-06-17] MEDS: CARVEDILOL 12.5 MG TABLET PO SCH (08:30)
[2024-06-17] MEDS: POTASSIUM CHLORIDE 20 MEQ POWDER PACKET GT SCH (12:03)
[2024-06-17] MEDS: MAGNESIUM OXIDE 400 MG TABLET GT ONE (12:03)
[2024-06-17] MEDS: POTASSIUM CHLORIDE 20 MEQ POWDER PACKET ONE (12:04)
[2024-06-17] MEDS: MAGNESIUM OXIDE 400 MG TABLET ONE (12:05)
[2024-06-18] VITALS (29 sets, daily range): BP systolic 91–168; BP diastolic 51–117; TEMP 99–101.3; O2SAT 92–99
[2024-06-18 04:40] LABS: BASOPHILS # (AUTO) 0.1 K/uL (0.0-0.2); BASOPHILS % (AUTO) 1.5 % (0.0-2.0); EOSINOPHILS # (AUTO) 0.1 K/uL (0.0-0.7); EOSINOPHILS % (AUTO) 0.6 % (0.0-6.0); HEMATOCRIT 29 % (33-45); HEMOGLOBIN 9.6 g/dL (11.5-14.8); LYMPHOCYTES # (AUTO) 1.8 K/uL (0.8-4.8); LYMPHOCYTES % (AUTO) 20.2 % (20.0-44.0); MEAN CORPUSCULAR HEMOGLOBIN 29 PG (26.0-33.0); MEAN CORPUSCULAR HGB CONC 34 g/dl (31.0-36.0); MEAN CORPUSCULAR VOLUME 88 fL (82-100); MONOCYTES # (AUTO) 1.2 K/uL (0.1-1.30); MONOCYTES % (AUTO) 13.1 % (2.0-12.0); NEUTROPHILS # (AUTO) 5.7 K/uL (1.8-8.9); NEUTROPHILS % (AUTO) 64.6 % (43.0-81.0); PLATELET COUNT (AUTO) 448 K/uL (150-450); RED BLOOD CELL COUNT(AUTO) 3.25 MIL/uL (4.0-5.2); RED CELL DISTRIBUTION WIDTH 17.4 % (11.5-15.0); WHITE BLOOD COUNT (AUTO) 8.8 K/uL (4.3-11.0)
[2024-06-18 05:03] LABS: CALCIUM, SERUM 8.6 mg/dL (8.5-10.1); CREATININE 0.5 mg/dL (0.6-1.3); MAGNESIUM 2.1 mg/dL (1.8-2.4); PHOSPHORUS 2.8 mg/dL (2.5-4.9); POTASSIUM 3.7 mmol/L (3.5-5.1)
[2024-06-18] MEDS: ACETAMINOPHEN 650 MG/20.3 ML UDC GT PRN (08:40)
[2024-06-19] VITALS (32 sets, daily range): BP systolic 88–149; BP diastolic 49–112; TEMP 97.8–100.2; O2SAT 92–100
[2024-06-19 05:07] LABS: BASOPHILS # (AUTO) 0.1 K/uL (0.0-0.2); BASOPHILS % (AUTO) 0.7 % (0.0-2.0); EOSINOPHILS # (AUTO) 0.1 K/uL (0.0-0.7); EOSINOPHILS % (AUTO) 0.7 % (0.0-6.0); HEMATOCRIT 26 % (33-45); HEMOGLOBIN 8.8 g/dL (11.5-14.8); LYMPHOCYTES # (AUTO) 1.7 K/uL (0.8-4.8); LYMPHOCYTES % (AUTO) 17.3 % (20.0-44.0); MEAN CORPUSCULAR HEMOGLOBIN 30 PG (26.0-33.0); MEAN CORPUSCULAR HGB CONC 34 g/dl (31.0-36.0); MEAN CORPUSCULAR VOLUME 88 fL (82-100); MONOCYTES # (AUTO) 1.3 K/uL (0.1-1.30); MONOCYTES % (AUTO) 13.1 % (2.0-12.0); NEUTROPHILS # (AUTO) 6.9 K/uL (1.8-8.9); NEUTROPHILS % (AUTO) 68.2 % (43.0-81.0); PLATELET COUNT (AUTO) 445 K/uL (150-450); RED BLOOD CELL COUNT(AUTO) 2.97 MIL/uL (4.0-5.2); RED CELL DISTRIBUTION WIDTH 16.9 % (11.5-15.0); WHITE BLOOD COUNT (AUTO) 10.1 K/uL (4.3-11.0)
[2024-06-19 05:23] LABS: CALCIUM, SERUM 8.2 mg/dL (8.5-10.1); CREATININE 0.5 mg/dL (0.6-1.3); PHOSPHORUS 3.3 mg/dL (2.5-4.9); POTASSIUM 3.1 mmol/L (3.5-5.1)
[2024-06-19] MEDS: POTASSIUM CHLORIDE 20 MEQ POWDER PACKET GT ONE (08:00)
[2024-06-19] MEDS: ACETYLCYSTEINE 10% SOLN 400 MG/4 ML VIAL NEB SCH (11:32)
[2024-06-19] MEDS: POTASSIUM CHLORIDE 20 MEQ POWDER PACKET ONE (12:13)
[2024-06-20] VITALS (25 sets, daily range): BP systolic 102–155; BP diastolic 51–133; TEMP 98.1–99; O2SAT 93–100
[2024-06-20 04:31] LABS: BASOPHILS # (AUTO) 0.1 K/uL (0.0-0.2); EOSINOPHILS # (AUTO) 0.1 K/uL (0.0-0.7); EOSINOPHILS % (AUTO) 0.5 % (0.0-6.0); HEMATOCRIT 25 % (33-45); HEMOGLOBIN 8.2 g/dL (11.5-14.8); LYMPHOCYTES # (AUTO) 1.9 K/uL (0.8-4.8); LYMPHOCYTES % (AUTO) 15.3 % (20.0-44.0); MEAN CORPUSCULAR HEMOGLOBIN 29 PG (26.0-33.0); MEAN CORPUSCULAR HGB CONC 32 g/dl (31.0-36.0); MEAN CORPUSCULAR VOLUME 88 fL (82-100); MONOCYTES # (AUTO) 1.6 K/uL (0.1-1.30); MONOCYTES % (AUTO) 13.1 % (2.0-12.0); NEUTROPHILS # (AUTO) 8.6 K/uL (1.8-8.9); NEUTROPHILS % (AUTO) 70.1 % (43.0-81.0); PLATELET COUNT (AUTO) 409 K/uL (150-450); RED BLOOD CELL COUNT(AUTO) 2.87 MIL/uL (4.0-5.2); WHITE BLOOD COUNT (AUTO) 12.2 K/uL (4.3-11.0)
[2024-06-20 04:58] LABS: BILIRUBIN,TOTAL 1.4 mg/dL (0.2-1.0); CALCIUM, SERUM 8.5 mg/dL (8.5-10.1); CREATININE 0.7 mg/dL (0.6-1.3); PHOSPHORUS 3.1 mg/dL (2.5-4.9); POTASSIUM 3.5 mmol/L (3.5-5.1)
[2024-06-20 04:59] LABS: ALBUMIN 1.7 g/dL (3.4-5.0); MAGNESIUM 2.1 mg/dL (1.8-2.4); TOTAL PROTEIN, SERUM 5.8 g/dL (6.4-8.2)
[2024-06-21] VITALS (15 sets, daily range): BP systolic 76–138; BP diastolic 56–115; TEMP 97.5–101.5; O2SAT 90–100
[2024-06-22] VITALS (13 sets, daily range): BP systolic 91–143; BP diastolic 54–96; TEMP 97.3–100.8; O2SAT 92–100
[2024-06-22 07:06] LABS: BASOPHILS % (AUTO) 0.1 % (0.0-2.0); EOSINOPHILS % (AUTO) 0.1 % (0.0-6.0); HEMATOCRIT 26 % (33-45); HEMOGLOBIN 8.6 g/dL (11.5-14.8); LYMPHOCYTES # (AUTO) 1.7 K/uL (0.8-4.8); LYMPHOCYTES % (AUTO) 7.7 % (20.0-44.0); MEAN CORPUSCULAR HEMOGLOBIN 29 PG (26.0-33.0); MEAN CORPUSCULAR HGB CONC 33 g/dl (31.0-36.0); MEAN CORPUSCULAR VOLUME 89 fL (82-100); MONOCYTES # (AUTO) 1.2 K/uL (0.1-1.30); MONOCYTES % (AUTO) 5.4 % (2.0-12.0); NEUTROPHILS # (AUTO) 18.7 K/uL (1.8-8.9); NEUTROPHILS % (AUTO) 86.7 % (43.0-81.0); PLATELET COUNT (AUTO) 381 K/uL (150-450); RED BLOOD CELL COUNT(AUTO) 2.94 MIL/uL (4.0-5.2); RED CELL DISTRIBUTION WIDTH 17.4 % (11.5-15.0); WHITE BLOOD COUNT (AUTO) 21.6 K/uL (4.3-11.0)
[2024-06-22 07:14] LABS: CALCIUM, SERUM 8.3 mg/dL (8.5-10.1); CREATININE 0.5 mg/dL (0.6-1.3); MAGNESIUM 2.1 mg/dL (1.8-2.4); PHOSPHORUS 2.9 mg/dL (2.5-4.9); POTASSIUM 3.2 mmol/L (3.5-5.1)
[2024-06-22 10:27] LABS: INR 1.07 (0.91-1.10); PROTHROMBIN TIME 11.3 SECS (9.2-11.1)
[2024-06-22] MEDS: POTASSIUM CHLORIDE 20 MEQ POWDER PACKET NG SCH (12:03)
[2024-06-22] MEDS: Z GUARD REMEDY 4 OZ OINT TP PRN (17:42)
[2024-06-23] VITALS (12 sets, daily range): BP systolic 98–131; BP diastolic 59–98; TEMP 97.5–208.2; O2SAT 94–100
[2024-06-23 07:12] LABS: BASOPHILS % (AUTO) 0.3 % (0.0-2.0); EOSINOPHILS # (AUTO) 0.1 K/uL (0.0-0.7); EOSINOPHILS % (AUTO) 0.6 % (0.0-6.0); HEMATOCRIT 27 % (33-45); HEMOGLOBIN 8.8 g/dL (11.5-14.8); LYMPHOCYTES # (AUTO) 1.4 K/uL (0.8-4.8); LYMPHOCYTES % (AUTO) 11.9 % (20.0-44.0); MEAN CORPUSCULAR HEMOGLOBIN 29 PG (26.0-33.0); MEAN CORPUSCULAR HGB CONC 33 g/dl (31.0-36.0); MEAN CORPUSCULAR VOLUME 87 fL (82-100); MONOCYTES # (AUTO) 0.8 K/uL (0.1-1.30); MONOCYTES % (AUTO) 6.2 % (2.0-12.0); NEUTROPHILS # (AUTO) 9.8 K/uL (1.8-8.9); PLATELET COUNT (AUTO) 360 K/uL (150-450); RED BLOOD CELL COUNT(AUTO) 3.07 MIL/uL (4.0-5.2); WHITE BLOOD COUNT (AUTO) 12.1 K/uL (4.3-11.0)
[2024-06-23 07:30] LABS: CALCIUM, SERUM 8.6 mg/dL (8.5-10.1); CREATININE 0.5 mg/dL (0.6-1.3); MAGNESIUM 2.1 mg/dL (1.8-2.4); PHOSPHORUS 2.6 mg/dL (2.5-4.9); POTASSIUM 3.8 mmol/L (3.5-5.1)
[2024-06-24] VITALS (11 sets, daily range): BP systolic 102–134; BP diastolic 69–94; TEMP 97.5–98.9; O2SAT 97–100
[2024-06-24 06:41] LABS: BASOPHILS % (AUTO) 0.5 % (0.0-2.0); EOSINOPHILS # (AUTO) 0.1 K/uL (0.0-0.7); EOSINOPHILS % (AUTO) 0.7 % (0.0-6.0); HEMATOCRIT 28 % (33-45); HEMOGLOBIN 9.3 g/dL (11.5-14.8); LYMPHOCYTES # (AUTO) 1.6 K/uL (0.8-4.8); LYMPHOCYTES % (AUTO) 19.1 % (20.0-44.0); MEAN CORPUSCULAR HEMOGLOBIN 29 PG (26.0-33.0); MEAN CORPUSCULAR HGB CONC 33 g/dl (31.0-36.0); MEAN CORPUSCULAR VOLUME 88 fL (82-100); MONOCYTES # (AUTO) 0.6 K/uL (0.1-1.30); MONOCYTES % (AUTO) 7.5 % (2.0-12.0); NEUTROPHILS # (AUTO) 6.1 K/uL (1.8-8.9); NEUTROPHILS % (AUTO) 72.2 % (43.0-81.0); PLATELET COUNT (AUTO) 375 K/uL (150-450); RED BLOOD CELL COUNT(AUTO) 3.17 MIL/uL (4.0-5.2); RED CELL DISTRIBUTION WIDTH 17.4 % (11.5-15.0); WHITE BLOOD COUNT (AUTO) 8.4 K/uL (4.3-11.0)
[2024-06-24 06:46] LABS: CALCIUM, SERUM 8.7 mg/dL (8.5-10.1); CREATININE 0.4 mg/dL (0.6-1.3); POTASSIUM 3.7 mmol/L (3.5-5.1)
[2024-06-24 06:48] LABS: INR 0.97 (0.91-1.10); PARTIAL THROMBOPLASTIN TIME 25.3 SEC (24.3-34.3); PROTHROMBIN TIME 10.3 SECS (9.2-11.1)
[2024-06-24] MEDS ORDERED: ANESTHESIA TRAY IN PYXIS 1 EA TRAY MC ONE (09:45)
[2024-06-25] VITALS (10 sets, daily range): BP systolic 101–127; BP diastolic 64–91; TEMP 98.1–98.4; O2SAT 97–100
[2024-06-25 07:05] LABS: BASOPHILS % (AUTO) 0.3 % (0.0-2.0); EOSINOPHILS % (AUTO) 0.3 % (0.0-6.0); HEMATOCRIT 27 % (33-45); LYMPHOCYTES # (AUTO) 1.5 K/uL (0.8-4.8); LYMPHOCYTES % (AUTO) 17.6 % (20.0-44.0); MEAN CORPUSCULAR HEMOGLOBIN 30 PG (26.0-33.0); MEAN CORPUSCULAR HGB CONC 33 g/dl (31.0-36.0); MEAN CORPUSCULAR VOLUME 89 fL (82-100); MONOCYTES # (AUTO) 0.5 K/uL (0.1-1.30); MONOCYTES % (AUTO) 6.3 % (2.0-12.0); NEUTROPHILS # (AUTO) 6.3 K/uL (1.8-8.9); NEUTROPHILS % (AUTO) 75.5 % (43.0-81.0); PLATELET COUNT (AUTO) 396 K/uL (150-450); RED BLOOD CELL COUNT(AUTO) 3.05 MIL/uL (4.0-5.2); RED CELL DISTRIBUTION WIDTH 16.7 % (11.5-15.0); WHITE BLOOD COUNT (AUTO) 8.3 K/uL (4.3-11.0)
[2024-06-25] MEDS ORDERED: AMOX-430 PO (12:45)
== END 2024-06-25 16:23 | DRG 870 ==
LOC: ER 18:31 → ICU 20:49 → TELE-TD 06-20 17:35 → TELE1 06-24 09:45 → MEDSG1 06-25 13:58
PROVIDERS: ADMIT Student in an Organized Health Care Education/Training Program; ATTEND Student in an Organized Health Care Education/Training Program
PROC: 5A1955Z Respiratory Ventilation, Greater than 96 Consecutive Hours (ICD-10-PCS; 2024-05-30)
PROC: 02HV33Z Insertion of Infusion Device into Superior Vena Cava, Percutaneous Approach (ICD-10-PCS; 2024-05-30)
PROC: 0BH17EZ Insertion of Endotracheal Airway into Trachea, Via Natural or Artificial Opening (ICD-10-PCS; 2024-05-30)
PROC: 0F9980Z Drainage of Common Bile Duct with Drainage Device, Via Natural or Artificial Opening Endoscopic (ICD-10-PCS; 2024-06-01)
PROC: 0F7C8ZZ Dilation of Ampulla of Vater, Via Natural or Artificial Opening Endoscopic (ICD-10-PCS; 2024-06-01)
PROC: BF101ZZ Fluoroscopy of Bile Ducts using Low Osmolar Contrast (ICD-10-PCS; 2024-06-01)
PROC: 0FPB80Z Removal of Drainage Device from Hepatobiliary Duct, Via Natural or Artificial Opening Endoscopic (ICD-10-PCS; principal; 2024-06-01 14:00)
PROC: 0DH63UZ Insertion of Feeding Device into Stomach, Percutaneous Approach (ICD-10-PCS; 2024-06-24)
DX: A41.9 Sepsis, unspecified organism (principal); I21.A1 Myocardial infarction type 2; J96.01 Acute respiratory failure with hypoxia; J69.0 Pneumonitis due to inhalation of food and vomit; G92.8 Other toxic encephalopathy; K91.86 Retained cholelithiasis following cholecystectomy; E87.20 Acidosis, unspecified; J95.851 Ventilator associated pneumonia; R65.20 Severe sepsis without septic shock; Z78.1 Physical restraint status; G25.3 Myoclonus; R13.10 Dysphagia, unspecified; G93.0 Cerebral cysts; Z85.3 Personal history of malignant neoplasm of breast; Q03.1 Atresia of foramina of Magendie and Luschka; Z90.49 Acquired absence of other specified parts of digestive tract; E87.6 Hypokalemia; K21.9 Gastro-esophageal reflux disease without esophagitis; L89.156 Pressure-induced deep tissue damage of sacral region; K29.70 Gastritis, unspecified, without bleeding; K29.80 Duodenitis without bleeding; K57.30 Diverticulosis of large intestine without perforation or abscess without bleeding; K74.60 Unspecified cirrhosis of liver; F32.A Depression, unspecified; E11.9 Type 2 diabetes mellitus without complications; E83.42 Hypomagnesemia; D64.9 Anemia, unspecified
CPT/HCPCS: 31720; 36415; 36569; 36600; 43246; 70450-TC; 71045-TC; 74018; 74230-TC; 76700-TC; 80048-TC; 80053-TC; 80076-TC; 80202-TC; 81001; 82140-TC; 82310-TC; 82570-TC; 82607-TC; 82803-TC; 82962-TC; 83605-TC; 83690-TC; 83735-TC; 83880; 84100-TC; 84132-TC; 84133-TC; 84300-TC; 84443-TC; 84478-TC; 84484-TC; 85025-TC; 85610-TC; 85730-TC; 87040-TC; 87081-TC; 87086-TC; 92526; 92611-TC; 93307-TC; 93930-TC; 93971-TC; 94003-TC; 94640-TC; 94761-TC; 94762-TC; 94799-TC; 95819-TC; 97110-TC; 97112-TC; 97116-TC; 97530-TC; 97535-TC; A4217; A4223; A6253; A9563; C1769; C2625; G0378; J0360; J0690; J0692; J1650; J1815; J1953; J2060; J2250; J2470; J2543; J2704; J3010; J3370; J3475; J3480; J3490; J7030; J7050; J7060; Q9967

== ENCOUNTER 2024-07-03 20:19 | Inpatient (IN) | payer MEDICARE, OTHER ==
[~2024-07-03] VITALS: Ht 165.1 cm; Wt 85.3 kg
[~2024-07-03 20:19] MED LIST changes: +ACET325T53 GT; +ACET325T53 PO; +AMIN30LI27 GT; +AMOX-430 PO; +ASCO500T10 GT; +BISA10SU11 RC; +CALC-1143 GT; +CARV12.52 GT; +CHOL200059 GT; +CLON0.5T4 GT; +DOCU100C36 GT; +ESTR0.5T GT; +FURO20TA4 GT; +HYDR25TA4 GT; +INSU100V42 SQ; +MAGN400O6 GT; +METF-440 GT; +MULT-213 GT; +NA P133E RC; +NAPR-1192 GT; +ONDA4TAB5 GT; +PANT40TA49 PO; +POTA-88 GT; -POTA-88 PO; +ROSU10TA29 PO; +SERT50TA12 PO
[2024-07-03] MEDS ORDERED: LORAZEPAM INJ 2 MG/ML VIAL ONE (20:43)
[2024-07-03] MEDS: LORAZEPAM INJ 2 MG/ML VIAL IV ONE (20:45)
[2024-07-03 21:22] LABS: BASOPHILS # (AUTO) 0.1 K/uL (0.0-0.2); BASOPHILS % (AUTO) 0.5 % (0.0-2.0); EOSINOPHILS # (AUTO) 0.1 K/uL (0.0-0.7); EOSINOPHILS % (AUTO) 0.7 % (0.0-6.0); HEMATOCRIT 35 % (33-45); LYMPHOCYTES # (AUTO) 2.6 K/uL (0.8-4.8); LYMPHOCYTES % (AUTO) 25.1 % (20.0-44.0); MEAN CORPUSCULAR HEMOGLOBIN 28 PG (26.0-33.0); MEAN CORPUSCULAR HGB CONC 32 g/dl (31.0-36.0); MEAN CORPUSCULAR VOLUME 87 fL (82-100); MONOCYTES # (AUTO) 0.6 K/uL (0.1-1.30); MONOCYTES % (AUTO) 6.1 % (2.0-12.0); NEUTROPHILS % (AUTO) 67.6 % (43.0-81.0); PLATELET COUNT (AUTO) 431 K/uL (150-450); RED BLOOD CELL COUNT(AUTO) 3.96 MIL/uL (4.0-5.2); RED CELL DISTRIBUTION WIDTH 16.5 % (11.5-15.0); WHITE BLOOD COUNT (AUTO) 10.3 K/uL (4.3-11.0)
[2024-07-03 21:30] LABS: CALCIUM, SERUM 9.8 mg/dL (8.5-10.1); CARBON DIOXIDE 36 mmol/L (21-32); CHLORIDE 103 mmol/L (98-107); CREATININE 0.6 mg/dL (0.6-1.3); GLUCOSE 208 mg/dL (74-106); SODIUM SERUM 144 mmol/L (136-145); UREA NITROGEN, BLOOD 24 mg/dL (7-18)
[2024-07-03 21:31] LABS: SERUM AMMONIA 24 umol/L (11-32)
[2024-07-03 21:33] LABS: INR 0.99 (0.91-1.10); PARTIAL THROMBOPLASTIN TIME 23.6 SEC (24.3-34.3); PROTHROMBIN TIME 10.5 SECS (9.2-11.1)
[2024-07-03 21:36] LABS: ALANINE AMINOTRANSFERASE 38 U/L (12-78); ALBUMIN 2.8 g/dL (3.4-5.0); ALKALINE PHOSPHATASE 222 U/L (46-116); ASPARTATE AMINOTRANSFERASE 35 U/L (15-37); BILIRUBIN,DIRECT 1.1 mg/dL (0.0-0.2); BILIRUBIN,TOTAL 1.1 mg/dL (0.2-1.0)
[2024-07-03 21:48] LABS: ALCOHOL, BLOOD < 3 mg/dL (0-10)
[2024-07-03] MEDS ORDERED: LEVETIRACETAM (500MG) 500 MG/5 ML VIAL IV ONE (22:10)
[2024-07-03] MEDS: IV NS 0.9% 500 ML BAG IV ONE (22:25)
[2024-07-03] MEDS: LEVETIRACETAM (500MG) 500 MG in IV NS 0.9% 100 ML IV ONE (22:25)
[2024-07-03 22:53] LABS: APPEARANCE,URINE CLOUDY (CLEAR); BILIRUBIN,URINE NEGATIVE (NEGATIVE); BLOOD, URINE 3+ Ery/uL (NEGATIVE); COLOR,URINE YELLOW (YELLOW); KETONES,URINE TRACE mg/dL (NEGATIVE); LEUKOCYTE ESTERASE ,URINE 1+ (NEGATIVE); NITRITE, URINE POSITIVE (NEGATIVE); PROTEIN,URINE 3+ mg/dl (NEGATIVE); UGLUCOSE NEGATIVE (NEGATIVE); UROBILINOGEN,URINE 0.2 EU/dL (0.2)
[2024-07-03 22:54] LABS: ADD URINE CULTURE YES; BACTERIA,URINE 1+ /HPF (None Seen); URINE AMORPHOUS PHOSPHATES Moderate /HPF (None Seen); WBC,URINE 21-50 /HPF (0-3)
[2024-07-03 23:20] VITALS: BP 127/90; TEMP 97.7; O2SAT 99
[2024-07-04] MEDS ORDERED: MAGNESIUM HYDROXIDE 30 ML UDC PO PRN
[2024-07-04] MEDS ORDERED: ONDANSETRON HCL/PF 4 MG/2 ML VIAL IVP PRN
[2024-07-04] MEDS: IV 1/2NS 1000 ML 1,000 ML IV ONE (00:56)
[2024-07-04] MEDS: PIPERACILLIN /TAZOBACTAM 3.375 G in IV D5W 50 ML IV ONE (00:57)
[2024-07-04] MEDS: ENOXAPARIN SODIUM 40 MG/0.4 ML DISP.SYRIN SQ SCH (01:30)
[2024-07-04] MEDS: CEFTRIAXONE 1 G in IV D5W 50 ML IV SCH (02:43)
[2024-07-04] MEDS ORDERED: GLUCERNA 1.2 1,000 ML BOTTLE NG PRN ×2 (03:00→09:30)
[2024-07-04 04:13] VITALS: BP 119/79; TEMP 98.2; O2SAT 100
[2024-07-04] MEDS: GLUCERNA 1.2 1,000 ML BOTTLE NG SCH (04:30)
[2024-07-04 04:36] LABS: AMPHETAMINE, URINE NEGATIVE (NEGATIVE); BARBITURATE, URINE NEGATIVE (NEGATIVE); BENZODIAZEPINE, URINE NEGATIVE (NEGATIVE); CANNABINOID, URINE NEGATIVE (NEGATIVE); COCCAINE, URINE NEGATIVE (NEGATIVE); OPIATE, URINE NEGATIVE (NEGATIVE); PHENCYCLIDINE SCREEN,URINE NEGATIVE (NEGATIVE)
[2024-07-04 07:30] LABS: BASOPHILS % (AUTO) 0.3 % (0.0-2.0); EOSINOPHILS % (AUTO) 0.1 % (0.0-6.0); HEMATOCRIT 33 % (33-45); HEMOGLOBIN 10.4 g/dL (11.5-14.8); LYMPHOCYTES % (AUTO) 26.9 % (20.0-44.0); MEAN CORPUSCULAR HEMOGLOBIN 28 PG (26.0-33.0); MEAN CORPUSCULAR HGB CONC 32 g/dl (31.0-36.0); MEAN CORPUSCULAR VOLUME 89 fL (82-100); MONOCYTES # (AUTO) 0.7 K/uL (0.1-1.30); NEUTROPHILS # (AUTO) 4.8 K/uL (1.8-8.9); NEUTROPHILS % (AUTO) 63.7 % (43.0-81.0); PLATELET COUNT (AUTO) 342 K/uL (150-450); RED BLOOD CELL COUNT(AUTO) 3.67 MIL/uL (4.0-5.2); RED CELL DISTRIBUTION WIDTH 16.6 % (11.5-15.0); WHITE BLOOD COUNT (AUTO) 7.5 K/uL (4.3-11.0)
[2024-07-04 07:58] LABS: CALCIUM, SERUM 9.6 mg/dL (8.5-10.1); CREATININE 0.6 mg/dL (0.6-1.3); MAGNESIUM 2.2 mg/dL (1.8-2.4); PHOSPHORUS 4.1 mg/dL (2.5-4.9)
[2024-07-04] MEDS: PANTOPRAZOLE 40 MG TABLET.DR PO SCH (08:09)
[2024-07-04 08:11] LABS: THYROID STIMULATING HORMONE 0.18 uIU/mL (0.358-3.74)
[2024-07-04] MEDS ORDERED: ATOR20TA GT (08:41)
[2024-07-04] MEDS ORDERED: AMOX1TAB16 GT (08:41)
[2024-07-04] MEDS ORDERED: OMEP20CA15 GT (08:41)
[2024-07-04] MEDS ORDERED: ZINC220T4 GT (08:41)
[2024-07-04] MEDS ORDERED: SERT25TA GT (08:41)
[2024-07-04] MEDS ORDERED: IPRA3AMP22 IH (08:41)
[2024-07-04] MEDS ORDERED: MAGNESIUM HYDROXIDE 30 ML UDC GT PRN (09:00)
[2024-07-04] MEDS ORDERED: BISACODYL SUPP (10 MG) 10 MG/SUPP.RECT SUPP.RECT RC PRN (09:00)
[2024-07-04] MEDS ORDERED: clonazePAM 0.5 MG TABLET GT PRN (09:00)
[2024-07-04] MEDS ORDERED: NAPROXEN 375 MG TABLET.DR PO PRN (09:00)
[2024-07-04] MEDS ORDERED: ACETAMINOPHEN 325 MG TABLET MC PRN (09:00)
[2024-07-04] MEDS ORDERED: NA PHOS,M-B/NA PHOS,DI-BA 1 EA ENEMA RC PRN (09:00)
[2024-07-04 09:25] VITALS: BP 129/72; TEMP 99.5; O2SAT 100
[2024-07-04] MEDS ORDERED: ACETAMINOPHEN 325 MG TABLET PO PRN (09:25)
[2024-07-04] MEDS ORDERED: DEXTROSE 50%-WATER 50 ML DISP.SYRIN IV PRN (09:30)
[2024-07-04] MEDS: CARVEDILOL 12.5 MG TABLET GT SCH (10:25)
[2024-07-04] MEDS: ZINC SULFATE 220 MG CAPSULE GT SCH (10:25)
[2024-07-04] MEDS: CHOLECALCIFEROL 1,000 UNIT TABLET (VIT D3) GT SCH (10:26)
[2024-07-04] MEDS: DOCUSATE SODIUM 100 MG CAPSULE PO SCH (10:26)
[2024-07-04] MEDS: ASCORBIC ACID 500 MG TABLET GT SCH (10:26)
[2024-07-04] MEDS: SERTRALINE HCL 25 MG TABLET GT SCH (10:30)
[2024-07-04] MEDS: HYDROCHLOROTHIAZIDE 25 MG TABLET GT SCH (10:30)
[2024-07-04] MEDS: PROSOURCE / PROSTAT (PYXIS) 30 ML UDC GT SCH (11:10)
[2024-07-04] MEDS: THERAHONEY GEL 1.5 OZ TUBE TP SCH (11:11)
[2024-07-04 11:18] LABS: POTASSIUM 4.1 mmol/L (3.5-5.1)
[2024-07-04] MEDS: INSULIN REGULAR, HUMAN 100 UNIT/ML 3 ML VIAL SQ PRN (11:20)
[2024-07-04] MEDS: BLOOD SUGAR DIAGNOSTIC 1 EACH STRIP IN SCH (11:20)
[2024-07-04 12:00] VITALS: BP 121/74; TEMP 99.3; O2SAT 100
[2024-07-04 16:00] VITALS: BP 142/100; TEMP 98.1; O2SAT 99
[2024-07-04 20:00] VITALS: BP 109/70; TEMP 99.3; O2SAT 99
[2024-07-04] MEDS: ATORVASTATIN 10 MG TABLET GT SCH (22:06)
[2024-07-04] MEDS: CALCIUM CARBONATE 500 MG TAB.CHEW GT SCH (22:07)
[2024-07-05] VITALS: BP 139/79; TEMP 98.6; O2SAT 100
[2024-07-05 04:00] VITALS: BP 124/77; TEMP 98.8; O2SAT 100
[2024-07-05 07:17] LABS: BASOPHILS % (AUTO) 0.5 % (0.0-2.0); HEMATOCRIT 34 % (33-45); LYMPHOCYTES # (AUTO) 1.6 K/uL (0.8-4.8); LYMPHOCYTES % (AUTO) 18.9 % (20.0-44.0); MEAN CORPUSCULAR HEMOGLOBIN 28 PG (26.0-33.0); MEAN CORPUSCULAR HGB CONC 32 g/dl (31.0-36.0); MEAN CORPUSCULAR VOLUME 87 fL (82-100); MONOCYTES # (AUTO) 0.6 K/uL (0.1-1.30); MONOCYTES % (AUTO) 6.9 % (2.0-12.0); NEUTROPHILS # (AUTO) 6.2 K/uL (1.8-8.9); NEUTROPHILS % (AUTO) 73.7 % (43.0-81.0); PLATELET COUNT (AUTO) 375 K/uL (150-450); RED BLOOD CELL COUNT(AUTO) 3.93 MIL/uL (4.0-5.2); RED CELL DISTRIBUTION WIDTH 16.6 % (11.5-15.0); WHITE BLOOD COUNT (AUTO) 8.4 K/uL (4.3-11.0)
[2024-07-05 07:46] LABS: CALCIUM, SERUM 9.8 mg/dL (8.5-10.1); CREATININE 0.6 mg/dL (0.6-1.3); POTASSIUM 3.7 mmol/L (3.5-5.1)
[2024-07-05 08:00] VITALS: BP 146/85; TEMP 98.2; O2SAT 100
[2024-07-05] MEDS: LORAZEPAM INJ 2 MG/ML VIAL IV PRN (08:44)
[2024-07-05] MEDS: GLUCERNA 1.2 1,000 ML BOTTLE NG SCH (09:33)
[2024-07-05] MEDS: MULTIVIT W/MINERALS 1 TAB TABLET GT SCH (09:55)
[2024-07-05] MEDS ORDERED: clonazePAM 0.5 MG TABLET GT PRN (10:00)
[2024-07-05] MEDS ORDERED: clonazePAM 0.5 MG TABLET PO PRN (10:00)
[2024-07-05] MEDS: ESTRADIOL 1 MG TABLET PO SCH (10:47)
[2024-07-05 12:00] VITALS: BP 124/82; TEMP 98.6; O2SAT 100
[2024-07-05 16:00] VITALS: BP 131/72; TEMP 98.4; O2SAT 94
[2024-07-05 20:00] VITALS: BP 145/72; TEMP 99.3; O2SAT 98
[2024-07-06] VITALS: BP 138/81; TEMP 100.4; O2SAT 97
[2024-07-06 04:00] VITALS: BP 123/74; TEMP 99.9; O2SAT 100
[2024-07-06 06:23] LABS: BASOPHILS % (AUTO) 0.4 % (0.0-2.0); EOSINOPHILS % (AUTO) 0.2 % (0.0-6.0); HEMATOCRIT 33 % (33-45); HEMOGLOBIN 10.7 g/dL (11.5-14.8); LYMPHOCYTES # (AUTO) 1.8 K/uL (0.8-4.8); LYMPHOCYTES % (AUTO) 21.9 % (20.0-44.0); MEAN CORPUSCULAR HEMOGLOBIN 28 PG (26.0-33.0); MEAN CORPUSCULAR HGB CONC 32 g/dl (31.0-36.0); MEAN CORPUSCULAR VOLUME 86 fL (82-100); MONOCYTES # (AUTO) 0.9 K/uL (0.1-1.30); MONOCYTES % (AUTO) 11.6 % (2.0-12.0); NEUTROPHILS # (AUTO) 5.3 K/uL (1.8-8.9); NEUTROPHILS % (AUTO) 65.9 % (43.0-81.0); PLATELET COUNT (AUTO) 349 K/uL (150-450); RED BLOOD CELL COUNT(AUTO) 3.82 MIL/uL (4.0-5.2); RED CELL DISTRIBUTION WIDTH 16.4 % (11.5-15.0)
[2024-07-06 06:45] LABS: CALCIUM, SERUM 9.4 mg/dL (8.5-10.1); CREATININE 0.6 mg/dL (0.6-1.3); POTASSIUM 3.7 mmol/L (3.5-5.1)
[2024-07-06] MEDS: Z GUARD REMEDY 4 OZ OINT TP PRN (08:54)
[2024-07-06] MEDS: DOCUSATE SODIUM LIQ 100 MG/10 ML UDC GT SCH (17:48)
[2024-07-06 20:00] VITALS: BP 113/58; TEMP 98.1; O2SAT 100
[2024-07-07] VITALS: BP 119/58; TEMP 98.4; O2SAT 100
[2024-07-07] MEDS: ACETAMINOPHEN 325 MG TABLET PO PRN (03:16)
[2024-07-07 05:00] VITALS: BP 106/69; TEMP 98.6; O2SAT 100
[2024-07-07 08:51] VITALS: BP 110/58; TEMP 97.9; O2SAT 98
[2024-07-07] MEDS: ZOSYN IVPB 3.375 G in IV D5W 50ml IV ONE (09:58)
[2024-07-07] MEDS: CHLORHEXIDINE GLUCONATE 15 ML UDC MM SCH (13:00)
[2024-07-07] MEDS: PIPERACILLIN /TAZOBACTAM 3.375 G in IV D5W 100 ML IV SCH (13:01)
[2024-07-07 13:26] VITALS: BP 140/108; TEMP 97.6; O2SAT 97
[2024-07-07 16:00] VITALS: BP 146/64; TEMP 98.6; O2SAT 100
[2024-07-07] MEDS: ACETAMINOPHEN 650 MG/20.3 ML UDC GT PRN (16:38)
[2024-07-07 20:00] VITALS: BP 123/79; TEMP 98.1; O2SAT 100
[2024-07-08] VITALS: BP 124/64; TEMP 98.8; O2SAT 100
[2024-07-08 05:02] VITALS: BP 123/57; TEMP 98.5; O2SAT 100
[2024-07-08 20:00] VITALS: BP 118/57; TEMP 99.1; O2SAT 100
[2024-07-09] VITALS (8 sets, daily range): BP systolic 108–161; BP diastolic 63–99; TEMP 98.2–99.1; O2SAT 96–100
[2024-07-09 06:59] LABS: CREATININE 0.5 mg/dL (0.6-1.3); POTASSIUM 3.3 mmol/L (3.5-5.1)
[2024-07-09 07:09] LABS: BASOPHILS % (AUTO) 0.5 % (0.0-2.0); EOSINOPHILS # (AUTO) 0.1 K/uL (0.0-0.7); EOSINOPHILS % (AUTO) 1.1 % (0.0-6.0); HEMATOCRIT 32 % (33-45); HEMOGLOBIN 10.6 g/dL (11.5-14.8); LYMPHOCYTES # (AUTO) 1.4 K/uL (0.8-4.8); LYMPHOCYTES % (AUTO) 24.3 % (20.0-44.0); MEAN CORPUSCULAR HEMOGLOBIN 28 PG (26.0-33.0); MEAN CORPUSCULAR HGB CONC 33 g/dl (31.0-36.0); MEAN CORPUSCULAR VOLUME 86 fL (82-100); MONOCYTES # (AUTO) 0.6 K/uL (0.1-1.30); MONOCYTES % (AUTO) 9.9 % (2.0-12.0); NEUTROPHILS # (AUTO) 3.8 K/uL (1.8-8.9); NEUTROPHILS % (AUTO) 64.2 % (43.0-81.0); PLATELET COUNT (AUTO) 306 K/uL (150-450); RED BLOOD CELL COUNT(AUTO) 3.77 MIL/uL (4.0-5.2); RED CELL DISTRIBUTION WIDTH 15.8 % (11.5-15.0); WHITE BLOOD COUNT (AUTO) 5.9 K/uL (4.3-11.0)
[2024-07-09] MEDS: POTASSIUM CHLORIDE 20 MEQ POWDER PACKET NG SCH (11:22)
[2024-07-09] MEDS ORDERED: CT SWABBABLE VALVE TRANS SET 1 EA INFUS.SET MC ONE (12:21)
[2024-07-09] MEDS ORDERED: IOHEXOL-350 100 ML VIAL IV ONE (12:21)
[2024-07-09] MEDS ORDERED: IV NS 0.9% 250 ML IV ONE (12:21)
[2024-07-10] VITALS (8 sets, daily range): BP systolic 110–142; BP diastolic 55–118; TEMP 98.1–99.3; O2SAT 98–100
[2024-07-10 07:07] LABS: CALCIUM, SERUM 9.2 mg/dL (8.5-10.1); CREATININE 0.5 mg/dL (0.6-1.3); MAGNESIUM 2.2 mg/dL (1.8-2.4); PHOSPHORUS 3.1 mg/dL (2.5-4.9); POTASSIUM 3.4 mmol/L (3.5-5.1)
[2024-07-10] MEDS: POTASSIUM CHLORIDE 20 MEQ POWDER PACKET NG SCH (10:18)
[2024-07-10] MEDS: POLYVINYL ALCOHOL 15 ML BOTTLE EACHEYE SCH (21:07)
[2024-07-11] VITALS: BP 98/70; TEMP 98.2; O2SAT 100
[2024-07-11 08:00] VITALS: BP 137/79; TEMP 99.1; O2SAT 100
[2024-07-11] MEDS: POLYVINYL ALCOHOL 15 ML BOTTLE LEFTEYE SCH (09:15)
[2024-07-11 12:00] VITALS: BP 106/77; TEMP 99.3; O2SAT 100
[2024-07-11] MEDS: PIPERACI/TAZO 3.375GM/D5W 50ML PB IV ONE (15:19)
[2024-07-11] MEDS: CEFTRIAXONE 1GM BAG (ER ONLY) 50 ML IV ONE (15:20)
[2024-07-11 16:00] VITALS: BP 138/88; TEMP 99.3; O2SAT 100
[2024-07-11 20:00] VITALS: BP 102/57; TEMP 98.1; O2SAT 98
[2024-07-12] VITALS: BP 107/84; TEMP 98; O2SAT 100
[2024-07-12 04:00] VITALS: BP 123/80; TEMP 98.1; O2SAT 99
[2024-07-12 08:41] VITALS: BP 148/102; TEMP 97.5; O2SAT 98
[2024-07-12 13:32] VITALS: BP 125/78; TEMP 98; O2SAT 100
[2024-07-12 20:00] VITALS: BP 102/61; TEMP 98.1; O2SAT 100
[2024-07-13] VITALS (8 sets, daily range): BP systolic 103–121; BP diastolic 48–95; TEMP 97.2–98.8; O2SAT 97–100
[2024-07-14] VITALS (7 sets, daily range): BP systolic 95–125; BP diastolic 60–105; TEMP 97.5–97.9; O2SAT 98–100
[2024-07-15] MEDS: PANTOPRAZOLE 40 MG/PACK PACK PO SCH (07:53)
[2024-07-15 08:00] VITALS: BP 112/67; TEMP 98.4; O2SAT 98
[2024-07-15 16:00] VITALS: BP 114/53; TEMP 98.6; O2SAT 98
[2024-07-15 17:09] VITALS: BP 116/65
== END 2024-07-15 19:20 | DRG 673 ==
LOC: ER 20:47 → TELE 22:38 → MED 07-14 10:34
PROVIDERS: ADMIT Nurse Practitioner Family; ATTEND Nurse Practitioner Acute Care
PROC: 0JB70ZZ Excision of Back Subcutaneous Tissue and Fascia, Open Approach (ICD-10-PCS; 2024-07-05)
PROC: 0JB90ZZ Excision of Buttock Subcutaneous Tissue and Fascia, Open Approach (ICD-10-PCS; 2024-07-05)
PROC: 0JB70ZZ Excision of Back Subcutaneous Tissue and Fascia, Open Approach (ICD-10-PCS; principal; 2024-07-09)
PROC: 0JB90ZZ Excision of Buttock Subcutaneous Tissue and Fascia, Open Approach (ICD-10-PCS; 2024-07-09)
DX: N39.0 Urinary tract infection, site not specified (principal); G93.41 Metabolic encephalopathy; L89.153 Pressure ulcer of sacral region, stage 3; L89.313 Pressure ulcer of right buttock, stage 3; E44.0 Moderate protein-calorie malnutrition; D68.69 Other thrombophilia; R56.9 Unspecified convulsions; G25.3 Myoclonus; D64.9 Anemia, unspecified; E11.9 Type 2 diabetes mellitus without complications; E88.09 Other disorders of plasma-protein metabolism, not elsewhere classified; F32.A Depression, unspecified; G24.9 Dystonia, unspecified; I10 Essential (primary) hypertension; Z79.4 Long term (current) use of insulin; Z79.84 Long term (current) use of oral hypoglycemic drugs; Z85.3 Personal history of malignant neoplasm of breast; Z90.49 Acquired absence of other specified parts of digestive tract; Z93.1 Gastrostomy status; B96.5 Pseudomonas (aeruginosa) (mallei) (pseudomallei) as the cause of diseases classified elsewhere; Z74.09 Other reduced mobility; E04.1 Nontoxic single thyroid nodule; E05.80 Other thyrotoxicosis without thyrotoxic crisis or storm; R13.10 Dysphagia, unspecified; K21.9 Gastro-esophageal reflux disease without esophagitis; H11.32 Conjunctival hemorrhage, left eye; L98.8 Other specified disorders of the skin and subcutaneous tissue; Z68.31 Body mass index [BMI] 31.0-31.9, adult; G93.0 Cerebral cysts; K74.60 Unspecified cirrhosis of liver; R53.1 Weakness
CPT/HCPCS: 36415; 70450-TC; 70496-TC; 70498-TC; 71045-TC; 76536-TC; 80048-TC; 80076-TC; 81001; 82140-TC; 82962-TC; 83735-TC; 84100-TC; 84439-TC; 84443-TC; 84484-TC; 85025-TC; 85730-TC; 87040-TC; 87086-TC; 87186-TC; 92526; 92611-TC; A4223; A6403; G0378; G0480; J0696; J1650; J1815; J1953; J2060; J2405; J2543; J3490; J7030; J7040; J7050; J7060; Q9967

== ENCOUNTER 2024-11-22 19:04 | Inpatient (IN) | payer MEDICARE, OTHER ==
[~2024-11-22] VITALS: Ht 157.5 cm; Wt 82.1 kg
[~2024-11-22 19:04] MED LIST changes: -ACET325T53 PO; -AMOX-430 PO; +AMOX1TAB16 GT; +ATOR20TA GT; -CARV12.52 GT; +CARV12.52 PO; -CLON0.5T4 GT; +CLON0.5T4 PO; -DOCU100C36 GT; +DOCU100C36 PO; -FURO20TA4 GT; +FURO20TA4 PO; -HYDR25TA4 GT; +HYDR25TA4 PO; +IPRA3AMP22 IH; -METF-440 GT; +METF-440 PO; +OMEP20CA15 GT; -ONDA4TAB5 GT; +ONDA4TAB5 PO; -PANT40TA49 PO; -ROSU10TA29 PO; +SERT25TA GT; -SERT50TA12 PO; +ZINC220T4 GT
[2024-11-22] MEDS ORDERED: PIPERACI/TAZO 3.375GM/D5W 50ML PB IV ONE (19:41)
[2024-11-22] MEDS: PIPERACILLIN /TAZOBACTAM 3.375 G in IV D5W 50 ML IV ONE (19:46)
[2024-11-22] MEDS: IV NS 0.9% 1,000 ML BAG IV ONE ×2 (19:46→21:30)
[2024-11-22 19:51] LABS: PLATELET COUNT (AUTO) 416 K/uL (150-450); RED BLOOD CELL COUNT(AUTO) 4.63 MIL/uL (4.0-5.2); RED CELL DISTRIBUTION WIDTH 15.4 % (11.5-15.0); WHITE BLOOD COUNT (AUTO) 13.7 K/uL (4.3-11.0)
[2024-11-22 20:01] LABS: INR 0.96 (0.91-1.10)
[2024-11-22 20:04] LABS: ASPARTATE AMINOTRANSFERASE 159 U/L (15-37); CALCIUM, SERUM 9.8 mg/dL (8.5-10.1); CREATININE 0.4 mg/dL (0.6-1.3); SODIUM SERUM 137 mmol/L (136-145); TOTAL PROTEIN, SERUM 8.1 g/dL (6.4-8.2); UREA NITROGEN, BLOOD 14 mg/dL (7-18)
[2024-11-22 20:07] LABS: LACTIC ACID 2.2 mmol/L (0.4-2.0)
[2024-11-22] MEDS ORDERED: ACETAMINOPHEN 650 MG/SUPP.RECT RC ONE (20:11)
[2024-11-22] MEDS ORDERED: ONDANSETRON HCL/PF 4 MG/2 ML VIAL ONE (20:12)
[2024-11-22] MEDS ORDERED: CT SWABBABLE VALVE TRANS SET 1 EA INFUS.SET MC ONE (20:14)
[2024-11-22] MEDS ORDERED: IOHEXOL-300 100 ML VIAL IV ONE (20:14)
[2024-11-22] MEDS ORDERED: IV NS 0.9% 250 ML IV ONE (20:15)
[2024-11-22] MEDS: ONDANSETRON HCL/PF - ER 4 MG/2 ML VIAL IV ONE (20:33)
[2024-11-22] MEDS: ACETAMINOPHEN 650 MG/SUPP.RECT RC ONE (20:33)
[2024-11-22] MEDS ORDERED: POTASSIUM CL. PREMIX PERIPHER. 200 ML ONE (20:58)
[2024-11-22] MEDS: POTASSIUM CL. PREMIX PERIPHER. 50 ML IV SCH (21:15)
[2024-11-22 21:16] LABS: APPEARANCE,URINE SLIGHTLY CLOUDY (CLEAR); BLOOD, URINE TRACE-INTA Ery/uL (NEGATIVE); LEUKOCYTE ESTERASE ,URINE 1+ (NEGATIVE); NITRITE, URINE NEGATIVE (NEGATIVE); UGLUCOSE NEGATIVE (NEGATIVE)
[2024-11-22] MEDS: IV NS 0.9% 1,000 ML IV SCH (21:30)
[2024-11-22] MEDS ORDERED: MAGNESIUM HYDROXIDE 30 ML UDC PO PRN (21:30)
[2024-11-22] MEDS ORDERED: Z GUARD REMEDY 4 OZ OINT TP PRN (21:30)
[2024-11-22] MEDS ORDERED: INSULIN REGULAR, HUMAN 100 UNIT/ML 3 ML VIAL SQ PRN (21:30)
[2024-11-22] MEDS ORDERED: DEXTROSE 50%-WATER 50 ML DISP.SYRIN IV PRN (21:30)
[2024-11-22] MEDS: ENOXAPARIN SODIUM 40 MG/0.4 ML DISP.SYRIN SQ SCH (21:30)
[2024-11-22] MEDS ORDERED: MAG HYDROX/AL HYDROX/SIMETH 30 ML UDC PO PRN (21:30)
[2024-11-22 21:38] LABS: SQUAMOUS EPITHELIAL CELL,UR Few /HPF (None Seen)
[2024-11-22 21:40] LABS: ADD URINE CULTURE YES; CALCIUM OXALATE CRYSTALS,UR Moderate /HPF (None Seen)
[2024-11-22] MEDS ORDERED: BLOOD SUGAR DIAGNOSTIC 1 EACH STRIP IN SCH (22:00)
[2024-11-23] MEDS ORDERED: DEXTROSE 50%-WATER 50 ML DISP.SYRIN IV PRN (00:30)
[2024-11-23] MEDS ORDERED: ACETAMINOPHEN 650 MG/SUPP.RECT RC PRN (00:30)
[2024-11-23] MEDS: NA PHOS,M-B/NA PHOS,DI-BA 1 EA ENEMA RC ONE ×2 (00:30→16:54)
[2024-11-23] MEDS ORDERED: hydrALAZINE HCL IV 20 MG VIAL IV PRN (00:30)
[2024-11-23] MEDS: ENOXAPARIN SODIUM 40 MG/0.4 ML DISP.SYRIN SQ ONE (00:44)
[2024-11-23] MEDS ORDERED: DOSING PER PHARMACY-VANCOMYCIN IV XX PRN (01:00)
[2024-11-23] MEDS: VANCOMYCIN 1 GM in IV NS 0.9% 250 ML IV ONE (01:30)
[2024-11-23] MEDS ORDERED: VANCOMYCIN 1 GM /D5W 250 ML PB IV ONE (03:35)
[2024-11-23 05:30] LABS: PLATELET COUNT (AUTO) 352 K/uL (150-450); RED BLOOD CELL COUNT(AUTO) 4.01 MIL/uL (4.0-5.2); RED CELL DISTRIBUTION WIDTH 15.5 % (11.5-15.0); WHITE BLOOD COUNT (AUTO) 12.2 K/uL (4.3-11.0)
[2024-11-23 05:44] LABS: ASPARTATE AMINOTRANSFERASE 95.0 U/L (15-37); CALCIUM, SERUM 8.6 mg/dL (8.5-10.1); CREATININE 0.7 mg/dL (0.6-1.3); PHOSPHORUS 2.9 mg/dL (2.5-4.9); SODIUM SERUM 139.0 mmol/L (136-145); TOTAL PROTEIN, SERUM 7.0 g/dL (6.4-8.2); UREA NITROGEN, BLOOD 12.0 mg/dL (7-18)
[2024-11-23] MEDS ORDERED: PIPERACI/TAZO 3.375GM/D5W 50ML PB IV ONE (05:52)
[2024-11-23] MEDS ORDERED: MINERAL OIL 133 ML (PYXIS) 1 EA ENEMA RC ONE (05:52)
[2024-11-23] MEDS: PIPERACILLIN /TAZOBACTAM 3.375 G in IV D5W 50 ML IV SCH ×2 (05:56→15:02)
[2024-11-23] MEDS: BLOOD SUGAR DIAGNOSTIC 1 EACH STRIP IN SCH (06:22)
[2024-11-23] MEDS ORDERED: CARVEDILOL 6.25 MG TABLET PO SCH (08:00)
[2024-11-23 08:30] VITALS: BP 153/98; TEMP 97.6; O2SAT 95
[2024-11-23] MEDS ORDERED: ROSU10TA2 PO (08:41)
[2024-11-23] MEDS ORDERED: FUROSEMIDE 20 MG TABLET PO SCH (09:00)
[2024-11-23 12:00] VITALS: BP 123/94; TEMP 98.1; O2SAT 97
[2024-11-23] MEDS: ONDANSETRON HCL/PF 4 MG/2 ML VIAL IVP PRN (14:00)
[2024-11-23] MEDS: POTASSIUM CL. PREMIX PERIPHER. 50 ML IV SCH (14:07)
[2024-11-23 14:52] VITALS: BP 142/92; TEMP 97.6; O2SAT 98
[2024-11-23] MEDS: PANTOPRAZOLE 40 MG VIAL IV SCH (14:58)
[2024-11-23] MEDS: FUROSEMIDE 20 MG/2 ML VIAL IV SCH (14:59)
[2024-11-23] MEDS: INSULIN REGULAR, HUMAN 100 UNIT/ML 3 ML VIAL SQ PRN (14:59)
[2024-11-23 16:00] VITALS: BP 140/85; TEMP 97.9; O2SAT 99
[2024-11-23] MEDS: VANCOMYCIN HCL 1.25 GM in IV D5W 250 ML IV SCH (16:02)
[2024-11-23] MEDS: POTASSIUM CL. PREMIX PERIPHER. 100 ML ONE (19:45)
[2024-11-23 20:00] VITALS: BP 149/88; TEMP 98.2; O2SAT 99
[2024-11-24] VITALS (10 sets, daily range): BP systolic 140–168; BP diastolic 81–100; TEMP 97–98.8; O2SAT 95–99
[2024-11-24 07:32] LABS: CALCIUM, SERUM 8.5 mg/dL (8.5-10.1); CREATININE 0.6 mg/dL (0.6-1.3); SODIUM SERUM 144.0 mmol/L (136-145); UREA NITROGEN, BLOOD 15.0 mg/dL (7-18)
[2024-11-24 07:36] LABS: PLATELET COUNT (AUTO) 339 K/uL (150-450); RED BLOOD CELL COUNT(AUTO) 4.02 MIL/uL (4.0-5.2); RED CELL DISTRIBUTION WIDTH 15.5 % (11.5-15.0); WHITE BLOOD COUNT (AUTO) 4.6 K/uL (4.3-11.0)
[2024-11-24 07:39] LABS: ASPARTATE AMINOTRANSFERASE 42.0 U/L (15-37); PHOSPHORUS 3.1 mg/dL (2.5-4.9); TOTAL PROTEIN, SERUM 6.7 g/dL (6.4-8.2)
[2024-11-24 08:35] LABS: BAND % (MANUAL) 3 % (0.0-5.0); LYMPHOCYTES % (MANUAL) 15 % (16-48); MONOCYTES % (MANUAL) 13 % (0-11.0); NEUTROPHILS % (MANUAL) 69 (42-76)
[2024-11-24 08:36] LABS: PLATELET ESTIMATE ADEQUATE
[2024-11-24] MEDS: POTASSIUM CL. PREMIX PERIPHER. 50 ML IV SCH (12:33)
[2024-11-24] MEDS ORDERED: DIATR MEGLU/DIATRIZOATE SODIUM 120 ML BOTTLE (GASTROGRAPHIN) ONE (14:27)
[2024-11-24] MEDS: LORAZEPAM INJ 2 MG/ML VIAL IV PRN (21:43)
[2024-11-25] VITALS: BP 153/100; TEMP 98.5; O2SAT 98
[2024-11-25] MEDS: IV D5/0.45 NACL 1,000 ML IV PRN (02:56)
[2024-11-25 04:00] VITALS: BP 149/99; TEMP 97.8; O2SAT 98
[2024-11-25 05:59] LABS: CALCIUM, SERUM 8.6 mg/dL (8.5-10.1); CREATININE 0.5 mg/dL (0.6-1.3); SODIUM SERUM 149.0 mmol/L (136-145); UREA NITROGEN, BLOOD 17.0 mg/dL (7-18)
[2024-11-25 06:00] LABS: PLATELET COUNT (AUTO) 347 K/uL (150-450); RED BLOOD CELL COUNT(AUTO) 3.92 MIL/uL (4.0-5.2); RED CELL DISTRIBUTION WIDTH 15.6 % (11.5-15.0); WHITE BLOOD COUNT (AUTO) 4.7 K/uL (4.3-11.0)
[2024-11-25 06:09] LABS: ASPARTATE AMINOTRANSFERASE 29.0 U/L (15-37); PHOSPHORUS 3.4 mg/dL (2.5-4.9); TOTAL PROTEIN, SERUM 6.8 g/dL (6.4-8.2)
[2024-11-25 08:00] VITALS: BP 155/90; TEMP 98.2; O2SAT 98
[2024-11-25] MEDS: POTASSIUM CL. PREMIX PERIPHER. 50 ML IV SCH (08:37)
[2024-11-25 12:18] LABS: IRON, SERUM 40 ug/dl (50-175)
[2024-11-25] MEDS: THERAHONEY GEL 1.5 OZ TUBE TP SCH (13:26)
[2024-11-25] MEDS: MEROPENEM 1 G in IV NS 0.9% 100 ML IV SCH (15:27)
[2024-11-25 16:00] VITALS: BP 130/95; TEMP 97.9; O2SAT 99
[2024-11-25 20:00] VITALS: BP 144/85; TEMP 98.6; O2SAT 100
[2024-11-26 04:00] VITALS: BP 145/86; TEMP 98.4; O2SAT 100
[2024-11-26 08:00] VITALS: BP 138/77; TEMP 98.1; O2SAT 100
[2024-11-26] MEDS: BISACODYL SUPP (10 MG) 10 MG/SUPP.RECT SUPP.RECT RC ONE (08:28)
[2024-11-26] MEDS ORDERED: CT SWABBABLE VALVE TRANS SET 1 EA INFUS.SET MC ONE (09:51)
[2024-11-26] MEDS ORDERED: IOHEXOL-350 100 ML VIAL IV ONE (09:51)
[2024-11-26] MEDS ORDERED: IV NS 0.9% 250 ML IV ONE (09:51)
[2024-11-26 11:34] LABS: CALCIUM, SERUM 8.4 mg/dL (8.5-10.1); CREATININE 0.4 mg/dL (0.6-1.3); SODIUM SERUM 145.0 mmol/L (136-145); UREA NITROGEN, BLOOD 10.0 mg/dL (7-18)
[2024-11-26 11:51] LABS: ASPARTATE AMINOTRANSFERASE 32.0 U/L (15-37); TOTAL PROTEIN, SERUM 6.5 g/dL (6.4-8.2)
[2024-11-26 12:00] VITALS: BP 149/74; TEMP 98.6; O2SAT 100
[2024-11-26 16:00] VITALS: BP 127/62; TEMP 98.2; O2SAT 100
[2024-11-26] MEDS: FERROUS SULFATE (325 MG) 325 MG/TAB TABLET PO SCH (16:23)
[2024-11-26 20:00] VITALS: BP 147/66; TEMP 99.7; O2SAT 96
[2024-11-27 04:00] VITALS: BP 132/78; TEMP 99.1; O2SAT 96
[2024-11-27 04:07] LABS: FREE KAPPA LT CHAINS SERUM 39.0 mg/L (3.3-19.4); FREE LAMBDA LT CHAIN SERUM 26.2 mg/L (5.7-26.3); KAPPA/LAMBDA RATIO SERUM 1.49 (0.26-1.65)
[2024-11-27 05:09] LABS: AFP, TUMOR MARKER 3.5 ng/mL (0.0-8.7); CANCER AG, 15-3 26.2 U/mL (0.0-25.0); CARCINOEMBRYONIC ANTIGEN (CEA) 6.0 ng/mL (0.0-4.7); FOLIC ACID > 20.0 ng/mL (>3.0); IMMUNOGLOBULIN A, SERUM 277 mg/dL (64-422); IMMUNOGLOBULIN M, SERUM 59 mg/dL (26-217)
[2024-11-27 07:10] LABS: PLATELET COUNT (AUTO) 354 K/uL (150-450); RED BLOOD CELL COUNT(AUTO) 4.01 MIL/uL (4.0-5.2); RED CELL DISTRIBUTION WIDTH 14.9 % (11.5-15.0); WHITE BLOOD COUNT (AUTO) 7.3 K/uL (4.3-11.0)
[2024-11-27 07:21] LABS: CALCIUM, SERUM 8.1 mg/dL (8.5-10.1); CREATININE 0.4 mg/dL (0.6-1.3); PHOSPHORUS 2.4 mg/dL (2.5-4.9); SODIUM SERUM 140.0 mmol/L (136-145); UREA NITROGEN, BLOOD 4.0 mg/dL (7-18)
[2024-11-27 07:24] LABS: ASPARTATE AMINOTRANSFERASE 24.0 U/L (15-37); TOTAL PROTEIN, SERUM 6.5 g/dL (6.4-8.2)
[2024-11-27 08:00] VITALS: BP 138/88; TEMP 98.1; O2SAT 97
[2024-11-27 08:50] LABS: ASPARTATE AMINOTRANSFERASE 28.0 U/L (15-37); TOTAL PROTEIN, SERUM 6.6 g/dL (6.4-8.2)
[2024-11-27] MEDS: POTASSIUM CL. PREMIX PERIPHER. 50 ML IV SCH ×2 (10:39→15:33)
[2024-11-27] MEDS ORDERED: ANESTHESIA TRAY IN PYXIS 1 EA TRAY MC ONE ×2 (15:21→19:55)
[2024-11-27 16:00] VITALS: BP 134/80; TEMP 97.7; O2SAT 97
[2024-11-27] MEDS: Sodium Phosphate 15 MMOL in IV NS 0.9% 245 ML IV ONE (16:52)
[2024-11-27] MEDS ORDERED: FENTANYL PF 100MCG/2ML AMPUL ONE (20:01)
[2024-11-27] MEDS ORDERED: ROCURONIUM BROMIDE 50 MG/5 ML ONE (20:01)
[2024-11-27] MEDS ORDERED: INDOMETHACIN 100 MG SUPP.RECT ONE (20:02)
[2024-11-27] MEDS ORDERED: IOHEXOL 50 ML IV ONE (20:02)
[2024-11-27 21:55] VITALS: BP 151/82; TEMP 98.2; O2SAT 98
[2024-11-28 04:00] VITALS: BP 139/82; TEMP 97.9; O2SAT 100
[2024-11-28 08:00] VITALS: BP 109/89; TEMP 97.8; O2SAT 100
[2024-11-28 08:00] LABS: CALCIUM, SERUM 8.2 mg/dL (8.5-10.1); CREATININE 0.6 mg/dL (0.6-1.3); PHOSPHORUS 3.7 mg/dL (2.5-4.9); SODIUM SERUM 138.0 mmol/L (136-145); UREA NITROGEN, BLOOD 7.0 mg/dL (7-18)
[2024-11-28 15:55] LABS: PLATELET COUNT (AUTO) 413 K/uL (150-450); RED BLOOD CELL COUNT(AUTO) 4.10 MIL/uL (4.0-5.2); RED CELL DISTRIBUTION WIDTH 14.8 % (11.5-15.0); WHITE BLOOD COUNT (AUTO) 9.2 K/uL (4.3-11.0)
[2024-11-28 16:00] VITALS: BP 128/90; TEMP 97.4; O2SAT 98
[2024-11-28 17:11] LABS: *THYROGLOBULIN <1.0 IU/mL (0.0-0.9)
[2024-11-28 19:06] LABS: THYROGLOBULIN BY IMA 12.9 ng/mL (1.5-38.5)
[2024-11-28 20:00] VITALS: BP 108/66; TEMP 98.2; O2SAT 100
[2024-11-29 04:00] VITALS: BP 123/69; TEMP 97.7; O2SAT 100
[2024-11-29 08:00] VITALS: BP 134/74; TEMP 97.7; O2SAT 97
[2024-11-29] MEDS: PANTOPRAZOLE 40 MG/PACK PACK PO SCH (08:40)
[2024-11-29 16:00] VITALS: BP 143/71; TEMP 98.5; O2SAT 98
[2024-11-29 20:00] VITALS: BP 145/93; TEMP 99.1; O2SAT 99
[2024-11-29] MEDS: ACETAMINOPHEN 325 MG TABLET PO PRN (22:58)
[2024-11-30 04:00] VITALS: BP 133/95; TEMP 98.2; O2SAT 99
[2024-11-30 05:21] VITALS: BP 133/95; TEMP 98.2; O2SAT 99
[2024-11-30 08:00] VITALS: BP 144/72; TEMP 99.5; O2SAT 98
[2024-11-30] MEDS: PROPRANOLOL HCL 10 MG TABLET PO SCH (15:39)
[2024-11-30 16:00] VITALS: BP 154/64; TEMP 98.5; O2SAT 100
[2024-11-30] MEDS: BACLOFEN (10 MG) 10 MG TABLET PO SCH (17:15)
[2024-11-30 20:00] VITALS: BP 98/87; TEMP 98.2; O2SAT 100
[2024-12-01 04:00] VITALS: BP 145/74; TEMP 97.9; O2SAT 99
[2024-12-01 08:00] VITALS: BP 149/84; TEMP 98.1; O2SAT 100
[2024-12-01 16:00] VITALS: BP 132/70; TEMP 97.1; O2SAT 99
[2024-12-01] MEDS: BACLOFEN (10 MG) 10 MG TABLET PO SCH (17:10)
[2024-12-01 20:00] VITALS: BP 124/80; TEMP 98.8; O2SAT 98
[2024-12-02] VITALS (9 sets, daily range): BP systolic 104–138; BP diastolic 74–90; TEMP 98.2–98.6; O2SAT 98–99
[2024-12-02 06:26] LABS: PLATELET COUNT (AUTO) 352 K/uL (150-450); RED BLOOD CELL COUNT(AUTO) 4.00 MIL/uL (4.0-5.2); RED CELL DISTRIBUTION WIDTH 15.1 % (11.5-15.0); WHITE BLOOD COUNT (AUTO) 4.2 K/uL (4.3-11.0)
[2024-12-02 06:27] LABS: CALCIUM, SERUM 8.7 mg/dL (8.5-10.1); CREATININE 0.4 mg/dL (0.6-1.3); PHOSPHORUS 2.4 mg/dL (2.5-4.9); UREA NITROGEN, BLOOD 3.0 mg/dL (7-18)
[2024-12-02 06:36] LABS: SODIUM SERUM 146.0 mmol/L (136-145)
[2024-12-02] MEDS: POTASSIUM CHLORIDE 20 MEQ TAB.PRT.SR PO SCH (08:39)
[2024-12-02] MEDS: GLUCERNA SHAKE 237 ML CAN PO SCH (11:30)
[2024-12-02] MEDS: MAGNESIUM OXIDE 400 MG TABLET PO ONE (11:31)
[2024-12-02] MEDS: PROSOURCE / PROSTAT (PYXIS) 30 ML UDC PO SCH (12:29)
[2024-12-02] MEDS: K PHOS NEUTRAL 250 MG TABLET PO ONE (16:35)
[2024-12-03 04:00] VITALS: BP 129/78; TEMP 98.2; O2SAT 98
[2024-12-03 08:00] VITALS: BP 134/72; TEMP 98.2; O2SAT 100
[2024-12-03 11:01] LABS: PLATELET COUNT (AUTO) 268 K/uL (150-450); RED BLOOD CELL COUNT(AUTO) 3.75 MIL/uL (4.0-5.2); RED CELL DISTRIBUTION WIDTH 15.5 % (11.5-15.0); WHITE BLOOD COUNT (AUTO) 4.4 K/uL (4.3-11.0)
[2024-12-03 11:15] LABS: ASPARTATE AMINOTRANSFERASE 23 U/L (15-37); CALCIUM, SERUM 8.5 mg/dL (8.5-10.1); CREATININE 0.3 mg/dL (0.6-1.3); PHOSPHORUS 2.7 mg/dL (2.5-4.9); SODIUM SERUM 141 mmol/L (136-145); TOTAL PROTEIN, SERUM 5.9 g/dL (6.4-8.2); UREA NITROGEN, BLOOD 5 mg/dL (7-18)
[2024-12-03 14:10] LABS: EOSINOPHILS % (MANUAL) 2 % (0-4); LYMPHOCYTES % (MANUAL) 14 % (16-48); MONOCYTES % (MANUAL) 6 % (0-11.0); NEUTROPHILS % (MANUAL) 78 (42-76); PLATELET ESTIMATE ADEQUATE
[2024-12-03 16:00] VITALS: BP_SYST 115; BP_SYST 167; BP_DIAS 66; BP_DIAS 74; TEMP 97.9; TEMP 98.6; O2SAT 100; O2SAT 96
[2024-12-03] MEDS: MEGESTROL ACETATE SUSP 400 MG/10 ML UDC PO SCH (16:22)
[2024-12-03] MEDS: BACLOFEN (10 MG) 10 MG TABLET PO SCH (16:23)
[2024-12-03 18:09] LABS: CREATININE, URINE 80.7 MG/DL (30.0-125.0); POTASSIUM RNDM,URINE 25.0 mmol/L (25-125); URINE SODIUM, RANDOM 78.0 mmol/l (40-220)
[2024-12-03 20:00] VITALS: BP 119/81; TEMP 99; O2SAT 98
[2024-12-04 04:00] VITALS: BP 148/90; TEMP 99.2; O2SAT 93
[2024-12-04 06:40] LABS: PLATELET COUNT (AUTO) 306 K/uL (150-450); RED BLOOD CELL COUNT(AUTO) 3.74 MIL/uL (4.0-5.2); RED CELL DISTRIBUTION WIDTH 15.5 % (11.5-15.0); WHITE BLOOD COUNT (AUTO) 4.3 K/uL (4.3-11.0)
[2024-12-04 06:53] LABS: CALCIUM, SERUM 8.8 mg/dL (8.5-10.1); CREATININE 0.5 mg/dL (0.6-1.3); SODIUM SERUM 146.0 mmol/L (136-145); UREA NITROGEN, BLOOD 5.0 mg/dL (7-18)
[2024-12-04 08:00] VITALS: BP 147/76; TEMP 98.8; O2SAT 99
[2024-12-04] MEDS: MAGNESIUM OXIDE 400 MG TABLET PO ONE (12:19)
[2024-12-04 16:00] VITALS: BP 127/73; TEMP 98.6; O2SAT 96
[2024-12-04] MEDS: DOCUSATE SODIUM 100 MG CAPSULE PO SCH (17:44)
[2024-12-04] MEDS: CARVEDILOL 12.5 MG TABLET PO SCH (17:44)
[2024-12-04 20:00] VITALS: BP 130/88; TEMP 98.2; O2SAT 96
[2024-12-05 04:00] VITALS: BP 129/80; TEMP 97.9; O2SAT 97
[2024-12-05 06:11] LABS: *SPE A/G RATIO 0.6 (0.7-1.7); *SPE ALBUMIN 2.1 g/dL (2.9-4.4); *SPE ALPHA-1-GLOBULIN 0.4 g/dL (0.0-0.4); *SPE ALPHA-2-GLOBULIN 0.9 g/dL (0.4-1.0); *SPE BETA GLOBULIN 1.1 g/dL (0.7-1.3); *SPE GLOBULIN, TOTAL 3.7 g/dL (2.2-3.9); *SPE M-SPIKE Not Observed g/dL (Not Observed); *SPE PROTEIN TOTAL 5.8 g/dL (6.0-8.5); *SPEGAMMA GLOBULIN 1.3 g/dL (0.4-1.8)
[2024-12-05 07:03] LABS: PLATELET COUNT (AUTO) 299 K/uL (150-450); RED BLOOD CELL COUNT(AUTO) 3.78 MIL/uL (4.0-5.2); RED CELL DISTRIBUTION WIDTH 15.0 % (11.5-15.0); WHITE BLOOD COUNT (AUTO) 3.7 K/uL (4.3-11.0)
[2024-12-05 07:05] LABS: CALCIUM, SERUM 8.5 mg/dL (8.5-10.1); CREATININE 0.5 mg/dL (0.6-1.3); SODIUM SERUM 143.0 mmol/L (136-145); UREA NITROGEN, BLOOD 7.0 mg/dL (7-18)
[2024-12-05 08:00] VITALS: BP 111/84; TEMP 98.1; O2SAT 96
[2024-12-05] MEDS: HYDROCHLOROTHIAZIDE 25 MG TABLET PO SCH (09:10)
[2024-12-05] MEDS: POTASSIUM CHLORIDE 20 MEQ TAB.PRT.SR PO SCH (11:45)
[2024-12-05] MEDS ORDERED: PANT40SU2 PO (13:45)
[2024-12-05] MEDS ORDERED: BACL10TA PO (13:45)
[2024-12-05] MEDS ORDERED: NUT.237L45 PO (13:45)
[2024-12-05] MEDS ORDERED: COLL30OI TP (13:45)
[2024-12-05] MEDS ORDERED: MEGE400O5 PO (13:45)
[2024-12-05] MEDS ORDERED: ENOX40DI SQ (13:45)
[2024-12-05] MEDS ORDERED: Prosource PO (13:45)
[2024-12-05] MEDS ORDERED: Blood Sugar Diagnostic IN (13:45)
[2024-12-05] MEDS ORDERED: FERR325T28 PO (13:45)
[2024-12-05] MEDS ORDERED: INSU100V28 SQ (13:45)
[2024-12-05 16:00] VITALS: BP 109/65; TEMP 97.5; O2SAT 99
[2024-12-19] MEDS ORDERED: CEFT1VIA15 IV (12:10)
[2024-12-19] MEDS ORDERED: VANC1PLA9 IV (12:10)
== END 2024-12-05 17:40 | DRG 435 ==
LOC: ER 19:10 → TELE IN 11-23 06:08 → TELE1 11-23 07:54 → MEDSG1 11-25 09:54 → UNDODISIN 11-25 19:05
PROVIDERS: ADMIT Registered Nurse Psychiatric/Mental Health; ATTEND Nurse Practitioner Acute Care
PROC: 05HC33Z Insertion of Infusion Device into Left Basilic Vein, Percutaneous Approach (ICD-10-PCS; principal; 2024-11-24)
PROC: 0FPB8DZ Removal of Intraluminal Device from Hepatobiliary Duct, Via Natural or Artificial Opening Endoscopic (ICD-10-PCS; 2024-11-27)
PROC: 0F798DZ Dilation of Common Bile Duct with Intraluminal Device, Via Natural or Artificial Opening Endoscopic (ICD-10-PCS; 2024-11-27)
PROC: 0FC98ZZ Extirpation of Matter from Common Bile Duct, Via Natural or Artificial Opening Endoscopic (ICD-10-PCS; 2024-11-27)
PROC: BF13YZZ Fluoroscopy of Gallbladder and Bile Ducts using Other Contrast (ICD-10-PCS; 2024-11-27)
DX: C25.0 Malignant neoplasm of head of pancreas (principal); A41.9 Sepsis, unspecified organism; K83.1 Obstruction of bile duct; E43 Unspecified severe protein-calorie malnutrition; L89.153 Pressure ulcer of sacral region, stage 3; J15.9 Unspecified bacterial pneumonia; G93.41 Metabolic encephalopathy; R53.2 Functional quadriplegia; R65.20 Severe sepsis without septic shock; K56.600 Partial intestinal obstruction, unspecified as to cause; K83.09 Other cholangitis; N39.0 Urinary tract infection, site not specified; D72.819 Decreased white blood cell count, unspecified; B96.20 Unspecified Escherichia coli [E. coli] as the cause of diseases classified elsewhere; G40.909 Epilepsy, unspecified, not intractable, without status epilepticus; K74.60 Unspecified cirrhosis of liver; I10 Essential (primary) hypertension; E11.9 Type 2 diabetes mellitus without complications; E04.1 Nontoxic single thyroid nodule; D50.9 Iron deficiency anemia, unspecified; Z68.33 Body mass index [BMI] 33.0-33.9, adult; Z16.24 Resistance to multiple antibiotics; K86.89 Other specified diseases of pancreas; K56.41 Fecal impaction; E87.6 Hypokalemia; E88.09 Other disorders of plasma-protein metabolism, not elsewhere classified; E86.0 Dehydration; R62.7 Adult failure to thrive; Z85.3 Personal history of malignant neoplasm of breast; Z79.84 Long term (current) use of oral hypoglycemic drugs; Z87.442 Personal history of urinary calculi; R13.10 Dysphagia, unspecified; R74.01 Elevation of levels of liver transaminase levels; E80.6 Other disorders of bilirubin metabolism; D17.5 Benign lipomatous neoplasm of intra-abdominal organs; Z96.89 Presence of other specified functional implants; G25.2 Other specified forms of tremor; G93.0 Cerebral cysts; Q03.1 Atresia of foramina of Magendie and Luschka; K21.9 Gastro-esophageal reflux disease without esophagitis; Z79.4 Long term (current) use of insulin; N20.0 Calculus of kidney
CPT/HCPCS: 36410; 36415; 70450-TC; 71045-TC; 71260-TC; 74018; 74250-TC; 76641-TC; 80048-TC; 80053-TC; 80076-TC; 81001; 82105; 82150-TC; 82378; 82436-TC; 82570-TC; 82607-TC; 82728-TC; 82784; 82962-TC; 83540-TC; 83605-TC; 83615-TC; 83690-TC; 83735-TC; 83880; 83935-TC; 84100-TC; 84132-TC; 84133-TC; 84155; 84165; 84300-TC; 84443-TC; 84484-TC; 85025-TC; 85027-TC; 85730-TC; 86300; 86301; 86334; 87040-TC; 87081-TC; 87086-TC; 87186-TC; 92526; 92611; 93307-TC; A4223; A6253; A9563; C1769; C1874; G0378; J0330; J0690; J1100; J1650; J1815; J1938; J2060; J2185; J2405; J2470; J2543; J2704; J3010; J3373; J3480; J3490; J7030; J7040; J7042; J7050; J7060; Q9963; Q9967

== ENCOUNTER 2024-12-15 08:59 | Inpatient (IN) | payer MEDICARE, OTHER ==
[~2024-12-15] VITALS: Ht 167.6 cm; Wt 77.6 kg
[~2024-12-15 08:59] MED LIST changes: -ACET325T53 GT; -AMIN30LI27 GT; -AMOX1TAB16 GT; -ASCO500T10 GT; -ATOR20TA GT; +BACL10TA PO; -BISA10SU11 RC; +Blood Sugar Diagnostic IN; -CALC-1143 GT; -CHOL200059 GT; +COLL30OI TP; +ENOX40DI SQ; -ESTR0.5T GT; +FERR325T28 PO; -FURO20TA4 PO; +INSU100V28 SQ; -INSU100V42 SQ; -IPRA3AMP22 IH; -MAGN400O6 GT; +MEGE400O5 PO; -MULT-213 GT; -NA P133E RC; -NAPR-1192 GT; +NUT.237L45 PO; -OMEP20CA15 GT; +PANT40SU2 PO; -POTA-88 GT; +Prosource PO; +ROSU10TA2 PO; -SERT25TA GT; -ZINC220T4 GT
[2024-12-15] MEDS ORDERED: ACETAMINOPHEN 325 MG/SUPP.RECT RC ONE (09:05)
[2024-12-15] MEDS: ACETAMINOPHEN ES 500 MG TABLET PO ONE (09:15)
[2024-12-15 09:29] LABS: PLATELET COUNT (AUTO) 393 K/uL (150-450); RED BLOOD CELL COUNT(AUTO) 4.49 MIL/uL (4.0-5.2); RED CELL DISTRIBUTION WIDTH 14.7 % (11.5-15.0); WHITE BLOOD COUNT (AUTO) 8.1 K/uL (4.3-11.0)
[2024-12-15] MEDS: PIPERACILLIN /TAZOBACTAM 3.375 G in IV D5W 50 ML IV ONE (09:30)
[2024-12-15] MEDS: IV NS 0.9% 1,000 ML BAG IV ONE (09:30)
[2024-12-15 09:38] LABS: INR 0.99 (0.91-1.10)
[2024-12-15 09:40] LABS: SERUM AMMONIA 21 umol/L (11-32)
[2024-12-15 09:45] LABS: ASPARTATE AMINOTRANSFERASE 15 U/L (15-37); CALCIUM, SERUM 8.6 mg/dL (8.5-10.1); CREATININE 0.6 mg/dL (0.6-1.3); SODIUM SERUM 142 mmol/L (136-145); TOTAL PROTEIN, SERUM 7.2 g/dL (6.4-8.2); UREA NITROGEN, BLOOD 7 mg/dL (7-18)
[2024-12-15 09:49] LABS: LACTIC ACID 2.9 mmol/L (0.4-2.0)
[2024-12-15] MEDS: VANCOMYCIN 1 GM in IV D5W 250 ML IV ONE (09:50)
[2024-12-15 09:56] LABS: APPEARANCE,URINE TURBID (CLEAR); BLOOD, URINE 2+ Ery/uL (NEGATIVE); LEUKOCYTE ESTERASE ,URINE 3+ (NEGATIVE); NITRITE, URINE POSITIVE (NEGATIVE); UGLUCOSE NEGATIVE (NEGATIVE)
[2024-12-15] MEDS ORDERED: ZINC220C6 PO (10:00)
[2024-12-15] MEDS ORDERED: AMIN30LI66 PO (10:00)
[2024-12-15] MEDS ORDERED: ASCO500T10 PO (10:00)
[2024-12-15] MEDS ORDERED: INSU100V3 SQ (10:00)
[2024-12-15] MEDS ORDERED: COLL30OI TP (10:00)
[2024-12-15] MEDS ORDERED: VITS42.53 TP (10:00)
[2024-12-15] MEDS ORDERED: MULT-213 PO (10:00)
[2024-12-15] MEDS ORDERED: OMEP20CA15 PO (10:00)
[2024-12-15] MEDS ORDERED: ACET325T53 PO (10:00)
[2024-12-15] MEDS ORDERED: BACL5TAB PO (10:00)
[2024-12-15 10:01] LABS: ADD URINE CULTURE YES; SQUAMOUS EPITHELIAL CELL,UR Few /HPF (None Seen)
[2024-12-15 10:17] LABS: AMPHETAMINE, URINE NEGATIVE (NEGATIVE); BARBITURATE, URINE NEGATIVE (NEGATIVE); BENZODIAZEPINE, URINE NEGATIVE (NEGATIVE); CANNABINOID, URINE NEGATIVE (NEGATIVE); COCCAINE, URINE NEGATIVE (NEGATIVE); OPIATE, URINE NEGATIVE (NEGATIVE)
[2024-12-15] MEDS: POTASSIUM CL. PREMIX PERIPHER. 50 ML IV SCH (10:30)
[2024-12-15] MEDS ORDERED: POTASSIUM CHLORIDE 20 MEQ POWDER PACKET ONE (10:55)
[2024-12-15] MEDS: POTASSIUM CHLORIDE 20 MEQ POWDER PACKET PO ONE (11:15)
[2024-12-15] MEDS ORDERED: POTASSIUM CL. PREMIX PERIPHER. 50 ML ONE (11:28)
[2024-12-15] MEDS ORDERED: DOSING PER PHARMACY-VANCOMYCIN IV XX PRN (13:30)
[2024-12-15] MEDS ORDERED: DEXTROSE 50%-WATER 50 ML DISP.SYRIN IV PRN (13:30)
[2024-12-15] MEDS ORDERED: ONDANSETRON HCL/PF 4 MG/2 ML VIAL IVP PRN (13:30)
[2024-12-15] MEDS ORDERED: MAGNESIUM HYDROXIDE 30 ML UDC PO PRN (13:30)
[2024-12-15] MEDS ORDERED: ACETAMINOPHEN 325 MG TABLET PO PRN (13:30)
[2024-12-15] MEDS ORDERED: DOSING PER PHARMACY-ZOSYN IV 1 EA EA XX PRN (13:30)
[2024-12-15] MEDS ORDERED: MAG HYDROX/AL HYDROX/SIMETH 30 ML UDC PO PRN (13:30)
[2024-12-15] MEDS ORDERED: VANCOMYCIN 500 MG in IV D5W 100ml IV ONE (14:00)
[2024-12-15] MEDS ORDERED: ONDANSETRON 4 MG TAB.RAPDIS PO PRN (14:00)
[2024-12-15 14:28] VITALS: BP 140/82; TEMP 98.2
[2024-12-15] MEDS: ENOXAPARIN SODIUM 40 MG/0.4 ML DISP.SYRIN SQ SCH (14:47)
[2024-12-15 16:03] VITALS: BP 114/78; TEMP 98.2; O2SAT 94
[2024-12-15] MEDS: IV NS 0.9% 1,000 ML IV PRN (16:26)
[2024-12-15] MEDS: FERROUS SULFATE (325 MG) 325 MG/TAB TABLET PO SCH (16:27)
[2024-12-15] MEDS: CARVEDILOL 12.5 MG TABLET PO SCH (16:27)
[2024-12-15] MEDS: DOCUSATE SODIUM 100 MG CAPSULE PO SCH (16:27)
[2024-12-15] MEDS: MEGESTROL ACETATE SUSP 400 MG/10 ML UDC PO SCH (16:27)
[2024-12-15] MEDS: METFORMIN 500 MG TABLET PO SCH (16:27)
[2024-12-15] MEDS: BACLOFEN (10 MG) 10 MG TABLET PO SCH (16:28)
[2024-12-15] MEDS: BLOOD SUGAR DIAGNOSTIC 1 EACH STRIP IN SCH (16:47)
[2024-12-15] MEDS: PIPERACILLIN /TAZOBACTAM 3.375 G in IV D5W 100 ML IV SCH (17:26)
[2024-12-15] MEDS: INSULIN REGULAR, HUMAN 100 UNIT/ML 3 ML VIAL SQ PRN (17:27)
[2024-12-15 20:00] VITALS: BP 109/71; TEMP 97.5; O2SAT 98
[2024-12-15] MEDS: ATORVASTATIN 40 MG TABLET PO SCH (23:06)
[2024-12-16] VITALS: BP 126/79; TEMP 98.5; O2SAT 98
[2024-12-16] MEDS: VANCOMYCIN 1 GM in IV D5W 250ml IV SCH (01:35)
[2024-12-16 05:00] VITALS: BP 130/83; TEMP 98.4; O2SAT 97
[2024-12-16 07:30] VITALS: BP_SYST 124; BP_SYST 125; BP_DIAS 59; BP_DIAS 88; TEMP 97.9; TEMP 98.1; O2SAT 96; O2SAT 98
[2024-12-16] MEDS ORDERED: OMEPRAZOLE 20 MG CAPSULE.DR PO SCH (07:30)
[2024-12-16 07:56] LABS: PLATELET COUNT (AUTO) 327 K/uL (150-450); RED BLOOD CELL COUNT(AUTO) 3.94 MIL/uL (4.0-5.2); RED CELL DISTRIBUTION WIDTH 15.4 % (11.5-15.0); WHITE BLOOD COUNT (AUTO) 6.4 K/uL (4.3-11.0)
[2024-12-16 08:35] LABS: ASPARTATE AMINOTRANSFERASE 19.0 U/L (15-37); CALCIUM, SERUM 8.4 mg/dL (8.5-10.1); CREATININE 0.6 mg/dL (0.6-1.3); PHOSPHORUS 2.4 mg/dL (2.5-4.9); SODIUM SERUM 142.0 mmol/L (136-145); TOTAL PROTEIN, SERUM 6.3 g/dL (6.4-8.2); UREA NITROGEN, BLOOD 7.0 mg/dL (7-18)
[2024-12-16] MEDS: GLUCERNA SHAKE 237 ML CAN PO SCH (09:01)
[2024-12-16] MEDS: ACETAMINOPHEN 325 MG TABLET PO SCH (09:04)
[2024-12-16] MEDS: HYDROCHLOROTHIAZIDE 25 MG TABLET PO SCH (09:05)
[2024-12-16] MEDS: ZINC SULFATE 220 MG CAPSULE PO SCH (09:06)
[2024-12-16] MEDS: MULTIVIT W/MINERALS 1 TAB TABLET PO SCH (09:06)
[2024-12-16] MEDS: ASCORBIC ACID 500 MG TABLET PO SCH (09:06)
[2024-12-16] MEDS: PROSOURCE / PROSTAT (PYXIS) 30 ML UDC PO SCH (09:09)
[2024-12-16] MEDS: DAKINS QUARTER STRENGTH (0.125%) 480 ML BOTTLE TOP SCH (10:01)
[2024-12-16] MEDS: THERAHONEY GEL 1.5 OZ TUBE TP SCH (10:01)
[2024-12-16] MEDS: VITAMINS A AND D 56.7 GM TUBE TP SCH (10:01)
[2024-12-16 16:00] VITALS: BP 115/71; TEMP 97.3; O2SAT 98
[2024-12-16] MEDS: K PHOS NEUTRAL 250 MG TABLET PO ONE (16:44)
[2024-12-16 20:00] VITALS: BP 155/92; TEMP 98.2; O2SAT 97
[2024-12-16] MEDS: MUPIROCIN OINT 2% 22 GM TUBE NS SCH (21:32)
[2024-12-17 07:30] LABS: PLATELET COUNT (AUTO) 365 K/uL (150-450); RED BLOOD CELL COUNT(AUTO) 3.92 MIL/uL (4.0-5.2); RED CELL DISTRIBUTION WIDTH 15.0 % (11.5-15.0); WHITE BLOOD COUNT (AUTO) 6.3 K/uL (4.3-11.0)
[2024-12-17 07:37] LABS: CALCIUM, SERUM 8.7 mg/dL (8.5-10.1); CREATININE 0.6 mg/dL (0.6-1.3); SODIUM SERUM 146.0 mmol/L (136-145); UREA NITROGEN, BLOOD 8.0 mg/dL (7-18)
[2024-12-17 08:00] VITALS: BP 130/90; TEMP 98.2; O2SAT 98
[2024-12-17 16:00] VITALS: BP 129/76; TEMP 98.2; O2SAT 97
[2024-12-17 20:55] VITALS: BP 130/94; TEMP 98.2; O2SAT 98
[2024-12-17 21:48] VITALS: BP 125/60
[2024-12-18 07:00] VITALS: BP 110/88; TEMP 90.2; O2SAT 96
[2024-12-18 07:45] LABS: ASPARTATE AMINOTRANSFERASE 19.0 U/L (15-37); CALCIUM, SERUM 8.6 mg/dL (8.5-10.1); CREATININE 0.6 mg/dL (0.6-1.3); SODIUM SERUM 140.0 mmol/L (136-145); TOTAL PROTEIN, SERUM 6.4 g/dL (6.4-8.2); UREA NITROGEN, BLOOD 6.0 mg/dL (7-18)
[2024-12-18 07:48] LABS: PLATELET COUNT (AUTO) 391 K/uL (150-450); RED BLOOD CELL COUNT(AUTO) 3.98 MIL/uL (4.0-5.2); RED CELL DISTRIBUTION WIDTH 14.6 % (11.5-15.0); WHITE BLOOD COUNT (AUTO) 6.4 K/uL (4.3-11.0)
[2024-12-18] MEDS: POTASSIUM CL. PREMIX PERIPHER. 50 ML IV SCH (09:35)
[2024-12-18 15:26] LABS: CALCIUM, SERUM 8.4 mg/dL (8.5-10.1); CREATININE 0.7 mg/dL (0.6-1.3); SODIUM SERUM 140.0 mmol/L (136-145); UREA NITROGEN, BLOOD 7.0 mg/dL (7-18)
[2024-12-18 16:00] VITALS: BP 111/69; TEMP 98.8; O2SAT 98
[2024-12-18 20:00] VITALS: BP 136/95; TEMP 98.1; O2SAT 94
[2024-12-19 07:29] LABS: PLATELET COUNT (AUTO) 441 K/uL (150-450); RED BLOOD CELL COUNT(AUTO) 3.94 MIL/uL (4.0-5.2); RED CELL DISTRIBUTION WIDTH 15.0 % (11.5-15.0); WHITE BLOOD COUNT (AUTO) 6.2 K/uL (4.3-11.0)
[2024-12-19 07:47] LABS: SODIUM SERUM 145.0 mmol/L (136-145)
[2024-12-19 08:00] VITALS: BP 135/87; TEMP 98.1; O2SAT 96
[2024-12-19 08:09] LABS: CALCIUM, SERUM 9.0 mg/dL (8.5-10.1); CREATININE 0.6 mg/dL (0.6-1.3); UREA NITROGEN, BLOOD 5.0 mg/dL (7-18)
[2024-12-19] MEDS: POTASSIUM CHLORIDE 20 MEQ TAB.PRT.SR PO SCH (09:19)
[2024-12-19] MEDS ORDERED: CEFT1VIA15 IV (12:10)
[2024-12-19] MEDS ORDERED: VANC1PLA9 IV (12:10)
[2024-12-19 16:00] VITALS: BP 140/97; TEMP 97.2; O2SAT 98
[2024-12-19 20:57] VITALS: BP 103/89; TEMP 98.2; O2SAT 98
[2024-12-20] MEDS: VANCOMYCIN HCL 1.25 GM in IV D5W 250 ML IV SCH (01:08)
[2024-12-20 06:37] LABS: PLATELET COUNT (AUTO) 460 K/uL (150-450); RED BLOOD CELL COUNT(AUTO) 4.02 MIL/uL (4.0-5.2); RED CELL DISTRIBUTION WIDTH 14.7 % (11.5-15.0); WHITE BLOOD COUNT (AUTO) 7.6 K/uL (4.3-11.0)
[2024-12-20 06:57] LABS: CALCIUM, SERUM 8.8 mg/dL (8.5-10.1); CREATININE 0.6 mg/dL (0.6-1.3); SODIUM SERUM 144.0 mmol/L (136-145); UREA NITROGEN, BLOOD 5.0 mg/dL (7-18)
[2024-12-20 08:46] VITALS: BP 148/108; TEMP 98.4; O2SAT 96
[2024-12-20] MEDS: POTASSIUM CL. PREMIX PERIPHER. 50 ML IV SCH (10:40)
[2024-12-20] MEDS ORDERED: POTASSIUM CHLORIDE 10 MEQ/50 ML PREMIXED IVPB FOR PERIPHERAL LINE IV ONE (11:00)
[2024-12-20 20:00] VITALS: BP_SYST 124; BP_SYST 129; BP_DIAS 66; TEMP 97.9; O2SAT 100; O2SAT 99
[2024-12-21 07:30] VITALS: BP 137/90; TEMP 97.6; O2SAT 97
[2024-12-21] MEDS: PROSOURCE / PROSTAT (PYXIS) 30 ML UDC PO SCH (13:00)
[2024-12-21] MEDS: GLUCERNA SHAKE 237 ML CAN PO SCH (13:00)
[2024-12-21 13:28] LABS: CALCIUM, SERUM 8.6 mg/dL (8.5-10.1); CREATININE 0.8 mg/dL (0.6-1.3); SODIUM SERUM 144.0 mmol/L (136-145); UREA NITROGEN, BLOOD 11.0 mg/dL (7-18)
[2024-12-21 13:54] LABS: PLATELET COUNT (AUTO) 345 K/uL (150-450); RED BLOOD CELL COUNT(AUTO) 4.63 MIL/uL (4.0-5.2); RED CELL DISTRIBUTION WIDTH 16.2 % (11.5-15.0); WHITE BLOOD COUNT (AUTO) 8.2 K/uL (4.3-11.0)
[2024-12-21 16:00] VITALS: BP 111/80; TEMP 98.2; O2SAT 97
[2024-12-21 20:00] VITALS: BP 113/67; TEMP 98.1; O2SAT 99
[2024-12-21] MEDS: CEFTRIAXONE 1 G in IV D5W 50 ML IV SCH (20:57)
[2024-12-22 06:05] LABS: PLATELET COUNT (AUTO) 469 K/uL (150-450); RED BLOOD CELL COUNT(AUTO) 4.03 MIL/uL (4.0-5.2); RED CELL DISTRIBUTION WIDTH 15.1 % (11.5-15.0); WHITE BLOOD COUNT (AUTO) 7.5 K/uL (4.3-11.0)
[2024-12-22 06:48] LABS: CALCIUM, SERUM 8.7 mg/dL (8.5-10.1); CREATININE 0.6 mg/dL (0.6-1.3); SODIUM SERUM 146.0 mmol/L (136-145); UREA NITROGEN, BLOOD 9.0 mg/dL (7-18)
[2024-12-22 08:00] VITALS: BP 137/85; TEMP 98.1; O2SAT 99
[2024-12-22] MEDS: POTASSIUM CHLORIDE 20 MEQ TAB.PRT.SR PO ONE (10:31)
[2024-12-22 16:00] VITALS: BP 109/71; TEMP 98.4; O2SAT 98
[2024-12-22 20:47] VITALS: BP 94/57; TEMP 97.9; O2SAT 100
[2024-12-23 06:37] LABS: PLATELET COUNT (AUTO) 480 K/uL (150-450); RED BLOOD CELL COUNT(AUTO) 3.92 MIL/uL (4.0-5.2); RED CELL DISTRIBUTION WIDTH 15.4 % (11.5-15.0); WHITE BLOOD COUNT (AUTO) 8.7 K/uL (4.3-11.0)
[2024-12-23 06:48] LABS: CALCIUM, SERUM 8.7 mg/dL (8.5-10.1); CREATININE 0.6 mg/dL (0.6-1.3); SODIUM SERUM 145.0 mmol/L (136-145); UREA NITROGEN, BLOOD 11.0 mg/dL (7-18)
[2024-12-23 08:00] VITALS: BP 121/87; TEMP 98.1; O2SAT 96
[2024-12-23 08:29] VITALS: BP 121/87
[2024-12-23] MEDS: POTASSIUM CHLORIDE 20 MEQ TAB.PRT.SR PO SCH (11:11)
[2024-12-26 00:06] LABS: RENIN, PLASMA 3.6 ng/mL/hr (.)
== END 2024-12-23 16:00 | DRG 853 ==
LOC: ER 09:02 → TELE 11:49 → MED 12-16 15:08
PROVIDERS: ADMIT Nurse Practitioner Family; ATTEND Nurse Practitioner Acute Care
PROC: 0QB10ZZ Excision of Sacrum, Open Approach (ICD-10-PCS; principal; 2024-12-17)
DX: A41.9 Sepsis, unspecified organism (principal); E43 Unspecified severe protein-calorie malnutrition; G92.8 Other toxic encephalopathy; L89.154 Pressure ulcer of sacral region, stage 4; D68.59 Other primary thrombophilia; N39.0 Urinary tract infection, site not specified; E87.0 Hyperosmolality and hypernatremia; K56.600 Partial intestinal obstruction, unspecified as to cause; Z16.24 Resistance to multiple antibiotics; E87.4 Mixed disorder of acid-base balance; G40.909 Epilepsy, unspecified, not intractable, without status epilepticus; B96.4 Proteus (mirabilis) (morganii) as the cause of diseases classified elsewhere; E11.9 Type 2 diabetes mellitus without complications; E78.5 Hyperlipidemia, unspecified; E66.9 Obesity, unspecified; E87.6 Hypokalemia; E88.09 Other disorders of plasma-protein metabolism, not elsewhere classified; I10 Essential (primary) hypertension; R13.10 Dysphagia, unspecified; Z79.84 Long term (current) use of oral hypoglycemic drugs; Z93.1 Gastrostomy status; Z79.4 Long term (current) use of insulin; B96.1 Klebsiella pneumoniae [K. pneumoniae] as the cause of diseases classified elsewhere; Z87.442 Personal history of urinary calculi; Z85.3 Personal history of malignant neoplasm of breast; G25.0 Essential tremor; E80.6 Other disorders of bilirubin metabolism; K86.89 Other specified diseases of pancreas; R74.01 Elevation of levels of liver transaminase levels; D17.5 Benign lipomatous neoplasm of intra-abdominal organs; N20.0 Calculus of kidney; F03.90 Unspecified dementia, unspecified severity, without behavioral disturbance, psychotic disturbance, mood disturbance, and anxiety; K21.9 Gastro-esophageal reflux disease without esophagitis; R53.1 Weakness; Z22.322 Carrier or suspected carrier of Methicillin resistant Staphylococcus aureus; E86.9 Volume depletion, unspecified; Q03.1 Atresia of foramina of Magendie and Luschka; Z79.899 Other long term (current) drug therapy; Z68.27 Body mass index [BMI] 27.0-27.9, adult; Z20.822 Contact with and (suspected) exposure to COVID-19
CPT/HCPCS: 36415; 70450-TC; 71045-TC; 72192-TC; 80048-TC; 80076-TC; 80202-TC; 81001; 82140-TC; 82962-TC; 83605-TC; 83735-TC; 84100-TC; 84244; 84443-TC; 84484-TC; 85025-TC; 85730-TC; 87040-TC; 87070-TC; 87081-TC; 87086-TC; 87186-TC; 97110-TC; 97530-TC; A4223; A6403; G0378; J0696; J1650; J1815; J2543; J3373; J3480; J7030; J7040; J7050; J7060; J7120